=== PATIENT | female | born 1950 | race Caucasian/White ===

== ENCOUNTER 2018-03-05 09:03 | Day surgery (SDC) | payer OTHER ==
[~2018-03-05] VITALS: Ht 160 cm; Wt 89.5 kg
[~2018-03-05 09:03] MED LIST: ACID REDUCER20 MG PO; ALLO100 PO; BACL10 PO; BUME2 PO; CIPR500 PO; CODACE30 PO; Cetirizine HCl10 MG PO; Clonazepam1 MG PO; Cymbalta60 MG; DOCU100 PO; DULO60 PO; DULOXETINE HCL60 MG PO; EAC MC; Enulose 2020 G/30 ML PO; GABA800 PO; GLIP10 PO; Glucophage1000 MG PO; HYDACE10B PO; HYDMOR2 PO; HYDRA25 PO; INSULANPEN; INSULANPEN SC; LIRA0.6P; LIRA0.6P SC; Lantus100 UNIT/1 SC; METF500 PO; Metformin HCl1000 MG PO; NYST100P TOP; Naproxen500 MG PO; OXYB5 PO; PIOG30 PO; POTA10T PO; PREG150 PO; Percocet 5-3251 EACH PO; QUET25 PO; QUETIAPINE FUMA50 MG PO; SIMV5 PO; Simvastatin20 MG PO; WARF3 PO; WARF4 PO
== END 2018-03-05 11:28 | disposition home or self-care (01) ==
LOC: ORSCSDS 09:03
PROVIDERS: Internal Medicine Gastroenterology
PROC: 0DBK8ZX Excision of Ascending Colon, Via Natural or Artificial Opening Endoscopic, Diagnostic (ICD-10-PCS; principal; 2018-03-05 10:45)
PROC: 0D758ZZ Dilation of Esophagus, Via Natural or Artificial Opening Endoscopic (ICD-10-PCS; principal; 2018-03-05 10:45)
DX: Z12.11 Encounter for screening for malignant neoplasm of colon (principal); K21.9 Gastro-esophageal reflux disease without esophagitis; K22.8 Other specified diseases of esophagus; K57.30 Diverticulosis of large intestine without perforation or abscess without bleeding; K64.4 Residual hemorrhoidal skin tags; K64.8 Other hemorrhoids; R13.10 Dysphagia, unspecified; G47.33 Obstructive sleep apnea (adult) (pediatric); J44.9 Chronic obstructive pulmonary disease, unspecified; E66.9 Obesity, unspecified; Z95.0 Presence of cardiac pacemaker; E11.22 Type 2 diabetes mellitus with diabetic chronic kidney disease; I12.9 Hypertensive chronic kidney disease with stage 1 through stage 4 chronic kidney disease, or unspecified chronic kidney disease; N18.9 Chronic kidney disease, unspecified; Z79.84 Long term (current) use of oral hypoglycemic drugs; Z68.34 Body mass index [BMI] 34.0-34.9, adult; Z79.899 Other long term (current) drug therapy
CPT/HCPCS: 82947; 88305; 93005; 93010; J7120

== ENCOUNTER → 2019-08-26 | Outpatient (CLI) | payer OTHER | END | disposition home or self-care (01) | LOC: LAB SHORT 12:20 → LAB EV 12:20 | DX: K13.0 Diseases of lips (principal) | CPT/HCPCS: 87070; 87205 ==

== ENCOUNTER → 2019-11-01 | Outpatient (CLI) | payer OTHER ==
[2019-11-01 12:06] LABS: BASOPHILS ABSOLUTE AUTO 0.03 K/mm3 (0.00-0.23); BASOPHILS PERCENT AUTO 0 % (0-2); EOSINOPHILS ABSOLUTE AUTO 0.19 K/mm3 (0.00-0.68); EOSINOPHILS PERCENT AUTO 2 % (0-6); Hematocrit 40.1 % (33.0-51.0); Hemoglobin 12.9 g/dL (11.5-16.0); IMMATURE GRAN ABSOLUTE AUTO 0.06 K/mm3 (0.00-0.10); IMMATURE GRAN PERCENT AUTO 1 % (0-1); LYMPHOCYTES ABSOLUTE AUTO 1.53 K/mm3 (0.84-5.20); LYMPHOCYTES PERCENT AUTO 17 % (21-46); MONOCYTES ABSOLUTE AUTO 0.82 K/mm3 (0.16-1.47); MONOCYTES PERCENT AUTO 9 % (4-13); Mean Corpuscular HGB Conc 32.2 g/dL (31.5-36.5); Mean Corpuscular Volume 87 fL (80-100); Mean Platelet Volume 11.7 fL (9.1-12.4); NEUTROPHILS PERCENT AUTO 71 % (41-73); Platelet Count 251 K/mm3 (150-400); RDW Coefficient Variation 13.4 % (11.7-14.2); RDW Standard Deviation 42.5 fL (35.1-46.3); Red Blood Cell Count 4.61 M/mm3 (3.80-5.20); White Blood Cell Count 9.13 K/mm3 (4.00-11.30)
[2019-11-01 12:15] LABS: Albumin, Blood 3.3 g/dL (3.4-5.0); Albumin/Globulin Ratio 0.7 (0.8-1.8); Bilirubin, Total 0.3 mg/dL (0.1-1.0); Bun/Creatinine Ratio 26.3 (12.0-20.0); Calcium, Blood 9.2 mg/dL (8.5-10.1); Creatinine, Blood 1.18 mg/dL (0.40-1.00); Globulin, Blood 4.9 g/dL (2.2-4.0); Potassium, Blood 4.3 mmol/L (3.5-5.5); Total Protein, Blood 8.2 g/dL (6.4-8.2)
== END ==
LOC: LAB EV 11:57 → LAB SHORT 11:57
PROVIDERS: Emergency Medicine
DX: R73.9 Hyperglycemia, unspecified (principal)
CPT/HCPCS: 80053; 85025

== ENCOUNTER → 2021-04-01 | Outpatient (CLI) | payer OTHER | LOC: LAB SHORT 18:57 | DX: Z13.29 Encounter for screening for other suspected endocrine disorder (principal); E11.22 Type 2 diabetes mellitus with diabetic chronic kidney disease; E78.5 Hyperlipidemia, unspecified; N18.2 Chronic kidney disease, stage 2 (mild); E55.9 Vitamin D deficiency, unspecified; Z88.8 Allergy status to other drugs, medicaments and biological substances; Z88.0 Allergy status to penicillin; Z88.5 Allergy status to narcotic agent | CPT/HCPCS: 82043 ==

== ENCOUNTER 2021-06-25 19:02 | Inpatient (IN) | payer OTHER ==
[~2021-06-25] VITALS: Ht 162.6 cm; Wt 78.6 kg
[~2021-06-25 19:02] MED LIST changes: -Glucophage1000 MG PO; -OXYB5 PO
[2021-06-25 19:30] LABS: BASOPHILS ABSOLUTE AUTO 0.04 K/mm3 (0.00-0.23); BASOPHILS PERCENT AUTO 0 % (0-2); EOSINOPHILS ABSOLUTE AUTO 0.11 K/mm3 (0.00-0.68); EOSINOPHILS PERCENT AUTO 1 % (0-6); IMMATURE GRAN ABSOLUTE AUTO 0.06 K/mm3 (0.00-0.10); IMMATURE GRAN PERCENT AUTO 1 % (0-1); LYMPHOCYTES ABSOLUTE AUTO 1.46 K/mm3 (0.84-5.20); LYMPHOCYTES PERCENT AUTO 12 % (21-46); MONOCYTES ABSOLUTE AUTO 1.28 K/mm3 (0.16-1.47); MONOCYTES PERCENT AUTO 11 % (4-13); Mean Corpuscular HGB 28.7 pg (26.0-34.0); Mean Corpuscular Volume 90 fL (80-100); Mean Platelet Volume 11.5 fL (9.1-12.4); NEUTROPHILS ABSOLUTE AUTO 8.97 K/mm3 (1.96-9.15); NEUTROPHILS PERCENT AUTO 75 % (41-73); Platelet Count 237 K/mm3 (150-400); RDW Coefficient Variation 12.6 % (11.7-14.2); RDW Standard Deviation 41.3 fL (35.1-46.3); Red Blood Cell Count 5.57 M/mm3 (3.80-5.20); White Blood Cell Count 11.92 K/mm3 (4.00-11.30)
[2021-06-25 19:48] LABS: Alanine Aminotransfer (ALT/SGP 26 U/L (12-78); Albumin, Blood 3.5 g/dL (3.4-5.0); Albumin/Globulin Ratio 0.7 (0.8-1.8); Alk Phos 160 U/L (50-136); Anion Gap 8 mmol/L (6-16); Aspartate Aminotrans (AST/SGOT 37 U/L (12-37); Bilirubin, Total 0.8 mg/dL (0.1-1.0); Blood Urea Nitrogen 18 mg/dL (8-24); Bun/Creatinine Ratio 20.9 (12.0-20.0); CO2, Blood 28 mmol/L (21-32); Calcium, Blood 9.6 mg/dL (8.5-10.1); Chloride, Blood 101 mmol/L (98-108); Creatinine, Blood 0.86 mg/dL (0.40-1.00); Globulin, Blood 4.7 g/dL (2.2-4.0); Glomerular Filtration Rate >60 (60-); Glucose, Blood 332 mg/dL (70-99); Potassium, Blood 4.2 mmol/L (3.5-5.5); Sodium, Blood 137 mmol/L (136-145); Total Protein, Blood 8.2 g/dL (6.4-8.2); Troponin I 0.031 ng/mL (0.000-0.040)
[2021-06-25 19:58] LABS: International Normalized Ratio 1.01; Prothrombin Time Results 10.6 Sec (9.7-11.5)
[2021-06-25 22:05] LABS: Source, Urine Clean Catch
[2021-06-25 22:07] LABS: Bilirubin, Urine Neg (Neg); Blood, Urine 2+ (Neg); Glucose Qualitative, Urine 4+ (Neg); Ketones, Urine 3+ (Neg); Leukocyte Esterase, Urine 1+ (Neg); Nitrite, Urine Pos (Neg); Protein, Urine 3+ (Neg); Urobilinogen, Urine NORM (Normal)
[2021-06-25 22:15] LABS: Appearance, Urine Hazy (Clear); Color, Urine Yellow (P-Yellow)
[2021-06-25 22:16] LABS: Squamous Epithelial Cells Rare /hpf (Few); White Blood Cells, Urine 50-100 /hpf (0-5); Yeast/Fungi Urine Mod /hpf
[2021-06-25 22:17] LABS: Bacteria Many /hpf; Uric Acid Crystals Few /hpf
[2021-06-25 22:19] LABS: U Amphetamine Screen DETECTED; U Barbituate Screen Not Detected; U Benzodiazapine Screen Not Detected; U Buprenorphine Screen Not Detected; U Cannabinoids Screen Not Detected; U Cocaine Screen Not Detected; U Methadone Screen Not Detected; U Methamphetamine Screen DETECTED; U Opiates Screen Not Detected; U Oxycodone Screen Not Detected; U Phencyclidine Screen Not Detected; U Propoxyphene Screen Not Detected
[2021-06-26 00:08] LABS: Alanine Aminotransfer (ALT/SGP 22 U/L (12-78); Albumin, Blood 3.1 g/dL (3.4-5.0); Albumin/Globulin Ratio 0.7 (0.8-1.8); Alk Phos 139 U/L (50-136); Anion Gap 10 mmol/L (6-16); Aspartate Aminotrans (AST/SGOT 32 U/L (12-37); Bilirubin, Total 0.6 mg/dL (0.1-1.0); Blood Urea Nitrogen 18 mg/dL (8-24); Bun/Creatinine Ratio 21.8 (12.0-20.0); CO2, Blood 28 mmol/L (21-32); Calcium, Blood 9.4 mg/dL (8.5-10.1); Chloride, Blood 101 mmol/L (98-108); Creatinine, Blood 0.83 mg/dL (0.40-1.00); Globulin, Blood 4.3 g/dL (2.2-4.0); Glomerular Filtration Rate >60 (60-); Glucose, Blood 302 mg/dL (70-99); Phosphorus, Blood 2.9 mg/dL (2.5-4.9); Potassium, Blood 4.2 mmol/L (3.5-5.5); Sodium, Blood 139 mmol/L (136-145); Total Protein, Blood 7.4 g/dL (6.4-8.2)
--- NOTE | 2021-06-26 07:13 | NUR ---
TOOK OVER CARE OF PT AT 0700 06/26/21. PT RESTING COMFORTABLY IN ROOM ON ROOM AIR. NS RUNNING AT 125ML/HR. PT VITALS STABLE AT THIS TIME. NO NEW SIGNS OF WORSENING STROKE AT THIS TIME.
--- NOTE | 2021-06-26 07:15 | NUR ---
Assumed care of pt with Dorcas NUR at 0700. Bedside report received from Michaela NUR.
--- NOTE | 2021-06-26 08:47 | NUR ---
CURRENT DEFECITS PT HAS RIGHT SIDED WEAKNESS WITH GROSS MOTOR MOVEMENT. PT UNABLE TO GIVE THUMBS UP OR WIGGLE TOES AT THIS TIME. PT IS ABLE TO WEAKLY LIFT RIGHT SIDED EXTREMETIES FOR ABOUT FIVE SECONDS BEFORE DRIFTING. PT IS ABLE TO TRACK RN'S FINGER WITH EYES. NODS YES/NO APPROPRIATELY BUT SPEECH IS NONSENCICAL AT THIS TIME. PT APPEARS TO BE ALERT AND ORIENTED EVEN WITH ASSESSMENT LIMITATIONS DUE TO LACK OF VERBAL RESPONSES.
[2021-06-26 12:01] LABS: CHOL/HDL RATIO 4.3; Cholesterol 183 mg/dL (50-200); HDL Cholesterol 43 mg/dL (>39); LDL/HDL RATIO 2.7; Low Density Lipoprotein Chol 116 mg/dL (0-110); Triglycerides 120 mg/dL (30-160); Very Low Density Lipoprot Chol 24 mg/dL (6-32)
--- NOTE | 2021-06-26 17:57 | NUR ---
PER THERAPY ASSIST PT WITH EATING DUE TO IMPULSIVITY
--- NOTE | 2021-06-26 18:31 | NUR ---
PT AWAKE IN ROOM. NEURO STATUS IMPROVED SLIGHTLY. PT IS NOW ABLE TO SAY 'OKAY' AND 'YES' WITH SOME DIFFICULTY. NO OTHER WORDS SUCCESSFULLY SPOKEN YET. STILL ONLY GROSS MOVEMENT OF THE RIGHT SIDE. INTERMITTENT NEED FOR 2L NC OXYGEN. PT BP HAS BEEN RANGING AROUND 150-170'S, DR KASPER MADE AWARE AND PRN MED IN AUG FOR SYSTOLICS GREATER THAN 195. TOLERATED PUREED DIET WITHOUT SIGNS OF ASPIRATION. STOOD WITH PHYSICAL THERAPY TODAY.
--- NOTE | 2021-06-27 06:24 | NUR ---
NO SIGNIFICANT CHANGES OVERNIGHT. PT SLEEPS WHEN UNDISTURBED. SHE OPENS EYES TO VOICE AND FOLLOWS COMMANDS, NODS YES AND NO. BP ELEVATED BUT DID NOT MEET PARAMETERS FOR PRN'S. WILL CONTINUE TO MONITOR AND REPORT TO ONCOMING SHIFT.
[2021-06-27 07:41] LABS: Hematocrit 43.8 % (33.0-51.0); Hemoglobin 14.2 g/dL (11.5-16.0); Mean Corpuscular HGB 29.2 pg (26.0-34.0); Mean Corpuscular HGB Conc 32.4 g/dL (31.5-36.5); Mean Corpuscular Volume 90 fL (80-100); Mean Platelet Volume 11.2 fL (9.1-12.4); Platelet Count 205 K/mm3 (150-400); RDW Coefficient Variation 12.6 % (11.7-14.2); RDW Standard Deviation 41.6 fL (35.1-46.3); Red Blood Cell Count 4.87 M/mm3 (3.80-5.20); White Blood Cell Count 9.17 K/mm3 (4.00-11.30)
--- NOTE | 2021-06-27 07:52 | NUR ---
ASSUMED CARE: PT RESTING IN BED, PACED AT 69 ON TELE. ON RA. NO ACUTE NEEDS OR CONCERNS AT THIS TIME.
[2021-06-27 07:58] LABS: Albumin, Blood 2.9 g/dL (3.4-5.0); Anion Gap 10 mmol/L (6-16); Blood Urea Nitrogen 16 mg/dL (8-24); CO2, Blood 26 mmol/L (21-32); Calcium, Blood 8.8 mg/dL (8.5-10.1); Chloride, Blood 105 mmol/L (98-108); Creatinine, Blood 0.89 mg/dL (0.40-1.00); Glomerular Filtration Rate >60 (60-); Glucose, Blood 261 mg/dL (70-99); Phosphorus, Blood 2.7 mg/dL (2.5-4.9); Potassium, Blood 4.2 mmol/L (3.5-5.5); Sodium, Blood 141 mmol/L (136-145)
--- NOTE | 2021-06-27 15:19 | NUR ---
DISCUSSED PT'S BLOOD SUGARS WITH DR HOLDER. NEW ORDERS FOR INSULIN COVERAGE. CALLED PT'S S.O. TO HAVE HIM BRING HER HOME ROSANNA IN. STATED HE SHOULD BE ABLE TO GET IT HERE BY TOMORROW. NO FURTHER NEEDS AT THIS TIME.
--- NOTE | 2021-06-27 19:11 | NUR ---
SHIFT SUMMARY: PT'S NEURO STATUS REMAINS UNCHANGED THIS SHIFT. RIGHT SIDED WEAKNESS. ASSIST WITH MEALS, PT IS ABLE TO COMMUNICATE WITH NODDING AND SHAKING OF HEAD, OCCASIONAL WORDS OR SOUNDS TO INDICATE WHAT SHE NEEDS. ASSISTS WELL WITH TURNS IN BED. NO ACUTE NEEDS AT THIS TIME.
--- NOTE | 2021-06-28 06:06 | NUR ---
NO SIGNIFICANT CHANGES IN PT OVERNIGHT. SHE SLEEPS FOR LONGER STRETCHES WITH BRIEF INTERRUPTIONS FOR CARE. SPO2 BRIEFLY DROPS TO THE 80'S AND RECOVERS WITHIN SECONDS INTERMITTENTLY WITH SLEEP. PT DID VERBALIZE A MUMBLED "NO" ONE TIME. SHE CONTINUES TO NOD YES AND NO ANSWERS TO QUESTIONS. WILL CONTINUE TO MONITOR AND REPORT TO ONCOMING SHIFT.
--- NOTE | 2021-06-28 07:36 | NUR ---
ASSUMED CARE: PT RESTING QUIETLY IN BED AT THIS TIME. PACED AT 69 ON TELE. NO ACUTE NEEDS OR CONCERNS.
--- NOTE | 2021-06-28 12:16 | NUR ---
DR HOLDER CAME TO SEE PT AND IS MADE AWARE THAT PT'S VICTOZA IS UNAVAILABLE.
[2021-06-28] MEDS ORDERED: OXYB5 PO (14:36)
[2021-06-28] MEDS ORDERED: QUET100 PO (14:38)
[2021-06-28] MEDS ORDERED: METF500C PO (14:39)
--- NOTE | 2021-06-28 18:17 | NUR ---
PT TRANSFERED FROM ICU PT ARRIVED @ APPROX 1810 FROM ICU. PT APPEARS TO BE IN PLEASENT MOOD, BUT IS VERBALLY UNRESPONSIVE. PT ORIENTATED TO NEW ROOM AND PT COMFORT ASSESSED. PT ABLE TO SHAKE HEAD NO WHEN ASKED ABOUT PAIN AND SHOOK HEAD YES WHEN ASKED ABOUT COMFORT. PT SHOOK HEAD YES FOR UNDERSTANDING. BED ALARM ACTIVE. CALL LIGHT W/IN REACH. 2L NC.
--- NOTE | 2021-06-28 18:19 | NUR ---
REPORT CALLED TO KALEE NUR. PT TRANSFERRED VIA BED ON 2L NC. ACCOUNTING MANAGER ASSISTANT CONTROLLER FED PT DINNER PRIOR TRANSFER, TRANSFERRED BY HOSPITAL STAFF. NO ACUTE NEEDS OR CONCERNS.
--- NOTE | 2021-06-29 06:33 | NUR ---
SHIFT SUMMARY: PATIENT IS ALERT AND ORIENTED TO PERSON AND PLACE BY ANSWERING YES AND NO QUESTIONS, VSS. PATIENT WAS VERY LETHARGIC AT START OF SHIFT BUT WAS ABLE TO TAKE HER PILLS CRUSHED IN APPLE SAUCE AND SWALLOW HONEY THICKENED FLUIDS WITHOUT DIFFICULTY USING ASPIRATION PRECAUTIONS. INC. OF BOWEL AND BLADDER. AT START OF SHIFT RIGHT SIDE WAS FLACCID. THIS AM PATIENT HAS GROSS MOTOR FUNCTION OF FARRAH WITH A SLIGHT APPRAISER AUDITOR.
--- NOTE | 2021-06-29 16:01 | NUR ---
DAY SHIFT SUMMARY 70 YR OLD FEMALE PT WHO WAS FOUND DOWN IN HER HOME D/T STROKE. PT IS NON-VERBAL (BUT ABLE TO COMMUNICATE BY NODDING AND SHAKING HER HEAD) AND UNDERSTAND. PT IS ON SWALLOW PRECAUTIONS AND NEEDS TO BE FED AT MEALS. RT SIDED FACIAL DROOP IS PRESENT AND RT LEG IS FLACCID. GENERALIZED RT SIDED WEAKNESS PRESENT. PREVENTITIVE MEPILEX PLACED TO SACRAL AREA, ELBOWS, AND HEELS, WELL HILL BOOTS. CALL LIGHT IS WITHIN REACH OF PT AND PT ABLE TO PUSH LONG IT STAYS CLOSE BY. FREQUENT ROUNDING ON THIS PT D/T RT SIDED WEAKNESS AND LACK OF VERBAL COMMUNICATION.
--- NOTE | 2021-06-30 07:24 | NUR ---
SHIFT SUMMARY - NO ACUTE CHANGES THIS SHIFT. PT TOLERATED PO PUDDING AND APPLESAUCE WITHOUT COMPLICATIONS LAST NOC. PT SLEPT THROUGHOUT MOST OF THE NIGHT. PT IS ABLE TO REPOSITION SELF IN BED. PT CONTINUES WITH RIGHT SIDED WEAKNESS. BED IN LOW POSITION. CALL LIGHT WITHIN REACH.
--- NOTE | 2021-06-30 17:16 | NUR ---
DAY SHIFT SUMMARY 70 YEAR OLD FEMALE ADMIT POST STROKE. NONVERBAL BUT ABLE TO COMMUNICATE WITH NODDING AND SHANKING OF HER HEAD. PT IS ON 2L O2 AND WORKING WITH PHYSICAL THERAPY. WAITING PLACEMENT WITH SNF OR IRU. STATE VENETIAN BLIND MECHANIC, SOLANGE, CALLED TO STATE IF WE LET HER KNOW WHEN PT IS READY FOR DISCHARGE SHE CAN HELP WITH TRANSITION COORDINATION. HER NUMBER AND NAME HAS BEEN GIVEN TO PT AEROSPACE PROJECT MANAGER HERE. CALL LIGHT WITHIN REACH OF PT ON LT SIDE. RT SIDED WEAKNESS FROM STROKE. SACRAL, ELBOW, AND HEEL MEPILEX IN PLACE PRECAUTION WITH HEEL BOOTS.
--- NOTE | 2021-07-01 04:10 | NUR ---
DIAMOND GRINDER SUMMARY ADMITTED FOR ISCHEMIC STROKE WITH RIGHT SIDED FACIAL DROOP AND WEAKNESS. SHE IS FULL CODE. PLAN FOR DISCHARGE TO SNF. SHE IS NONVERBAL BUT COMMUNICATES WITH NODDING AND SHAKING OF HER HEAD. PT IS COOPERATIVE AND PLEASANT. 0/5 STRENGTH TO THE RIGHT ARM. 1/5 TO THE RIGHT LEG. SHE IS ABLE TO ASSIST WITH REPOSITIONING BUT IS LIMITED. THE PATIENT HAS BEEN RESTING THROUGHOUT THE SHIFT. SHE IS INCONTINENT WITH ATTENDS IN PLACE. NO OTHER CONCERNS THIS SHIFT.
--- NOTE | 2021-07-01 16:53 | NUR ---
SHIFT SUMMARY PT AWAKE AT START OF SHIFT, RESTING QUIETLY IN BED. PT IS NONVERBAL, BUT IS ABLE TO SHAKE HER HEAD FOR YES/NO QUESTIONS. PT ASSISTED UP TO CHAIR FOR BREAKFAST, WITH 2P MAX ASSIST AND GB WITH DIFFICULTY. R SIDE FLACCID, WITH R FACIAL DROOP. MEPILEX DRSG'S TO ELBOWS AND SACRAL AREA FOR PREVENTITIVE. PT ABLE TO TAKE MEDICATIONS CRUSHED IN APPLESAUCE W/O DIFFICULTY, BUT WAS NOT ABLE TO DRINK NECTAR THICK LIQUIDS WITH A SPOON W/O COUGHING CONSTANTLY. SPEECH TO FOR EVAL, NOTING PT COUGHING WITH THICKENED LIQUIDS WELL. BARAIUM SWALLOW DONE BEFORE LUNCH; PT DID NOT DO WELL. DR HOLDER NOTIFIED OF NEW RECOMMENDATIONS. PALLIATIVE CARE ALSO NOTIFIED OF PT STATUS. PALLIATIVE CARE RN NOTIFIED FAMILY TO DISCUSS PLAN OF CARE. PT NOT WANTING TO PARTICIPATE WITH P/T YESTERDAY OR TODAY, PRETENDING TO BE ASLEEP AND NOT WAKE UP. PT UNWILLING TO OPEN EYES FOR PALLIATIVE CARE TODAY WELL, PRETENDING TO BE SOUND ASLEEP, BUT THEN OPENED EYES IMMEDIATELY TO FAMILY. PT AND FAMILY INFORMED OF PT'S NEED TO PARTICIPATE IN CARE IN ORDER TO IMPROVE. FAMILY VERBALIZED UNDERSTANDING. PT REPOSITIONED THRU OUT THE DAY WITH PILLOWS TO KEEP PT ROTATED. BED ALARM ON FOR SAFETY. CALL LT IN REACH.
--- NOTE | 2021-07-01 17:15 | NUR ---
Family at bedside for a visit; pt has been refusing to work with therapy part of the time. Family encouraging her to put in the work so she can improve and move towards returnin home at some point. Pt indicates she will begin working more with therapy. Barium swallow study failed today. Dr. Benitez would like to try a soft diet, as she does need nutrition. She does shake her head,"YES" when asked if she wants to live.
--- NOTE | 2021-07-02 06:15 | NUR ---
SHIFT SUMMARY Patient non verbal, answer with nodding head yes or no. No disconfort noted. She slept through the night. No acute changes. We are continue with monitoring patient.
--- NOTE | 2021-07-02 15:14 | NUR ---
SHIFT SUMMARY PT ACTING A LITTLE MORE AWAKE TODAY. FAILED SWALLOW EVAL AGAIN THIS AM WITH PUDDING. PT LATER REFUSED SPEECH TX WELL AND O/T. PT UNWILLING TO PARTICIPATE IN CARE. R SIDE REMAINS FLACCID. PT REMAINS NONVERBAL. WILL NOD HEAD YES AND NO FOR SOME QUESTIONS. DR LOMELI IN TO SEE PT; NEW ORDERS PLACED. PT'S , TRUMAN, CALLED FOR UPDATE; GIVEN. PALLIATIVE CARE RN TO CALL DR LOMELI. DR LOMELI TO BE GIVEN HUSBANDS NUMBER TO CALL HIM. SX CONSULT PLACED FOR POSSIBLE PEG TUBE PLACEMENT, BUT PT IS UNWILLING TO PARTICIPATE TO TRY AND IMPROVE. PT IS BEING REPOSITIONED THRU OUT THE DAY AND ALLOWING ORAL CARE TO BE DONE. WILL CONTINUE TO MX. CALL LT IN REACH.
--- NOTE | 2021-07-02 16:48 | NUR ---
Pt's Abhinav and daughter Karen both state via telephone call that they do approve of feeding tube, along with pt herself shaking her head "Yes". At this time, it appears pt has been declined by IRU, and PT is recommending SNF now, then IRU after. Pt remains non-verbal. Will request a speech board for her.
--- NOTE | 2021-07-03 05:40 | NUR ---
SHIFT SUMMARY PT HAD AN UNEVENTFUL NIGHT. SLEPT OFF AND ON. R SIDED WEAKNESS AND R SIDED FACIAL DROOP. PT IS NONVERBAL. WILL NOD HEAD YES OR NO WHEN ANSWERING QUESTIONS. NO COMPLAINTS OF PAIN. INCONTINENT BUT PT WILL CALL WHEN SHE HAS GONE. ATTENDS IN PLACE. REDNESS TO RUBEN AREA, R SIDE. PT REMAINED NPO. Q 6 CBG'S. VITAL SIGNS STABLE. NO ACUTE CHANGES THIS SHIFT. WILL CONTINUE TO MONITOR.
[2021-07-03 10:38] LABS: Influenza A, PCR NEGATIVE (NEGATIVE); Influenza B, PCR NEGATIVE (NEGATIVE); Resp Syncytial Virus, PCR NEGATIVE (NEGATIVE); SARS-Cov-2 (COVID-19) PCR, MMC NEGATIVE (NEGATIVE)
--- NOTE | 2021-07-03 14:02 | NUR ---
ADMISSION TO UNIT STARTED ADMITS TO BEING NPO ANSWERS NO WITH SHAKE OF HEAD WHEN ASKED IT IMPLANTS IN BODY. 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
--- NOTE | 2021-07-03 14:58 | NUR ---
07/03/21 1458 Gilles Huizar See Anesthesia record TRAUL. Bite Block Placed. Patient to ENDO 1. History, Chart, Medications and Allergies reviewed before start of procedure. MONITOR INTACT WITH CONTINUOUS PULSE OXIMETRY AND INTERMITTENT BP. O2 VIA POM MASK INTACT THROUGHOUT SEDATION/PROCEDURE.
--- NOTE | 2021-07-03 17:48 | NUR ---
DAY SHIFT SUMMARY 70 YR OLD FEMALE FOUND DOWN IN HOME FROM STROKE. PEG TUBE PLACED TODAY. RECTAL TYLENOL ORDERED FOR PAIN, MEDICATED PER EMAR. WAITING PLACEMENT WITH SNF OR IRU. COMMUNICATED WITH PROGRESS THROUGHOUT DAY WITH PROCEEDURE. PT WORKED WITH ST TODAY WITH VERBAL SKILLS. PT REMAINS NPO AT THIS TIME. CALL LIGHT WITHIN REACH ON LT SIDE, RT SIDED WEAKNESS FROM STROKE.
--- NOTE | 2021-07-04 04:33 | NUR ---
SHIFT SUMMARY NO ACUTE CHANGES TO REPORT THIS SHIFT, PT HAS SLEPT T/O THE NIGHT AND HAS DENIED NEEDS WHEN ASKED. VITALS ARE STABLE. PT IS FLAT AND WITHDRAWN. ASSESSMENT REMAINS UNCHANGED. BED IN LOWEST POSITION, CALL LIGHT WITHIN REACH.
--- NOTE | 2021-07-04 11:46 | NUR ---
TUBE FEED STARTED ON THIS PATIENT PER ORDER. 25ML PER HOUR TO START ADVANCE 10ML PER 8 HOURS BY 10ML TO MAX OF 50ML PER HOUR H20 OF 25ML FLUSH EVERY HOUR. PATIENT TOLERATED FLUSH PRIOR TO STARTING TUBE FEED. NO PAIN OR SIGNS OR SYMPTOMS OF DISTRESS. WILL CLOSELY MONITOR THIS PATIENT FOR FIRST FEW HOURS. HOB IS AT 45 DEGREES. PATIENT CURRENTLY WATCHING TV. DMITRY ALVAREZ RN
--- NOTE | 2021-07-04 17:07 | NUR ---
SHIFT SUMMARY; STARTED TUBE FEEDS ON THIS PATIENT TODAY. PER ORDER INCREASED TO 35ML/HR AND 25ML FLUSH. PATIENT SHAKES HEAD FOR YES OR NO QUESTIONS. DOES NOT SPEAK. THIS RN SITS IN ROOM WITH PATIENT TODAY AND ASKS PAITENT ABOUT WHAT TELEVISION SHOW SHE WANTS TO WATCH. SHE IS ABLE TO COMMUNICATE WHAT SHE WANTED. PATIENT SPOUSE TRUMAN CALLS TODAY TO CHECK ON PATIENT AND WOULD LIKE SOMEONE TO CALL HIM ABOUT PLANS FOR HER DISCHARGE. SPOUSE HAS HAD A STROKE AND HE CANNOT TAKE CARE OF THIS PATIENT. HE WOULD PREFER THAT SHE GO TO [facility] RECORDS [facility]NAGER [facility] FOR NOW. WILL REMAIN AVAILABLE FOR THIS PAITENT FOR ANY WANTS OR NEEDS UNTIL HAND OFF AT SHIFT CHANGE. DMITRY ALVAREZ RN
[2021-07-05 05:20] LABS: Anion Gap 7 mmol/L (6-16); Blood Urea Nitrogen 32 mg/dL (8-24); Bun/Creatinine Ratio 43.2 (12.0-20.0); CO2, Blood 28 mmol/L (21-32); Calcium, Blood 9.5 mg/dL (8.5-10.1); Chloride, Blood 102 mmol/L (98-108); Creatinine, Blood 0.74 mg/dL (0.40-1.00); Glomerular Filtration Rate >60 (60-); Glucose, Blood 236 mg/dL (70-99); Phosphorus, Blood 3.4 mg/dL (2.5-4.9); Potassium, Blood 4.1 mmol/L (3.5-5.5); Sodium, Blood 137 mmol/L (136-145)
--- NOTE | 2021-07-05 05:28 | NUR ---
SHIFT SUMMARY NO ACUTE CHANGES TO REPORT THIS SHIFT. PT REMAINS NONVERBAL. PT IS TOLERATING HER TUBES FEEDS. RATE INCREASED FROM 35M TO 45 ML, AND SHE IS NOW NEAR HER GOAL RATE. PEG TUBE WNL. BLOOD SUGARS HAVE INCREASED SINCE STARTING FEEDS. LONG ACTING GIVEN AT HS. VITALS STABLE. BED IN LOWEST POSITION, CALL LIGHT WITHIN REACH.
--- NOTE | 2021-07-05 19:23 | NUR ---
SHIFT SUMMARY PATIENT RESTING IN BED. PATIENT IS NON-VERBAL BUT WILL NOD TO ANSWER YES OR NO QUESTIONS. NO SIGNIFICANT EVENTS T/O SHIFT. PATIENT WORKED WITH PT TODAY. TOLERATED WELL. PATIENT RECEIVING TUBE FEEDINGS AND RATE INCREASED TO GOAL OF 50ML. RECEIVING MEDICATIONS THROUGH PEG TUBE. BED IN LOW POSITION WITH CALL LIGHT IN REACH.
--- NOTE | 2021-07-06 05:08 | NUR ---
SUMMARY: PT RESTS IN BED W/O S/S PAIN OR DISTRESS. SHE CONT'S TO BE NON-VERBAL BUT NODS HEAD YES/NO TO SPECIFY NEEDS. R.SIDE WEAKNESS PERSISTS BUT PT ASSISTS W/TURNING ABLE AND ATTEMPTS TO FOLLWO COMMANDS. CONT PEG FEEDS INFUSING AT GOAL OF 5O ML/HR W/RESIDUALS <40 MLS T/O NOCTE. MEDS RECIEVED CRUSHED VIA TUBE PT REMAINS NPO. CBG'S STABLE, NO INSULIN RX'D OR INDICATED. TURN SCHEDULE MAINTAINED AND MEPILEXES PRESENT TO BONY PROMINENCES FOR SBD PREVENTION, NO BREAKDOWN OBSERVED. ATTENDS CHANGED PRN FOR INCONTINENCE OF URINE/STOOL AND MICONAZOLE POWDER APPLIED TO RASHY GROIN/RUBEN AREA. VSS AND VSS/AFEBRILE, NO ACUTE CHANGES. WCTM AND REPORT TO DAY RN.
--- NOTE | 2021-07-06 07:53 | NUR ---
LIUDMILA noriega handoff of patient care from [facility] Patient was in bed asleep. She did not appear in any distress. She had no requests at this time
--- NOTE | 2021-07-06 16:34 | NUR ---
Patient was alert and orient. She was able to nod her head yes when asked questions. She was also able to say yes but garbled. RN asked her to respond with words instead of a nod. RN asked her the numbers on the sheet and she said 1,2,3,4,5 as clear as she could. Patient had no c/o pain, she remained NPO, and continued on tube feedings at 50ml/hr. Her residual was 10ml. Patient HOB remained at 30 degress or above due to the feedings. Patient slept most of the shift. SHe had no requests at this time
--- NOTE | 2021-07-07 04:59 | NUR ---
PT IS A/OX1-2. SHE IS NOT ENTIRELY NON-VERBAL. IF PROMPTED SHE WILL SAY YES/NO. SHE IS CURRENLTY GETTING 50 ML/HR OF GLUCERNA VIA PEG TUBE. SHE REMAINED BEDBOUND THIS NOC SHIFT. NO TELE AND RA. NO ACUTE CHANGES TO REPORT. WE WILL CONTINUE TO MONITOR.
--- NOTE | 2021-07-07 07:59 | NUR ---
RN recvd handoff of patient care from LIUDMILA Mccullough Patient was in bed, awake, and not in distress
--- NOTE | 2021-07-07 15:57 | NUR ---
Patient was alert and orient. Physical/Occupational/Speech therapy all worked with patient today. RN brought a recliner to her room in case she would have gotten out of bed today. She did sit at the edge of the bed but felt too tired to get into the recliner. Patient tube feeding was on at 50ml/hr and turned off briefly because patient indicated she was full. Residual was at 50ml. Patient continued on blood glucose checks and take scheduled meds via pegtube. Cont to monitor patient
--- NOTE | 2021-07-08 07:57 | NUR ---
LIUDMILA noriega handoff of patient care from LIUDMILA Mccullough Patient was asleep in bed and did not appear to be in distress
--- NOTE | 2021-07-08 14:00 | NUR ---
Arrived to Pt's room with CORPORATE ASSOCIATE ATTORNEY in progress. Pt became unresponsive. Plan for CT. Dr Bishop will call Pt's spouse. Offered gentle voice and therapeutic touch with Pt. Offered reassurance and supportive visit for Pt. Palliative Care will remain available.
[2021-07-08 14:01] LABS: Bicarbonate Venous 34.3 mmol/L (24.0-30.0); PCO2 Venous 41.3 mmHg (38-42); PO2 Venous 49.8 mmHg (38-42); pH Blood Venous 7.53 (7.34-7.37)
[2021-07-08 14:02] LABS: Base Excess Venous 11.9 mmol/L
--- NOTE | 2021-07-08 15:50 | NUR ---
Patient was alert and orient, affect looked calm and mood was congruent. Patient did have an unarousable episode and MELT HOUSE SUPERVISOR had to be called. She is in bed back from CT. Her HOB is raised, her tubefeeding in on at 50ml/hr, and the bed alarm is on. RN talked to prior to the MELT HOUSE SUPERVISOR to give updates on patient. Patient had no requests at this time.
[2021-07-08 16:50] LABS: Anion Gap 3 mmol/L (6-16); Blood Urea Nitrogen 24 mg/dL (8-24); Bun/Creatinine Ratio 26.8 (12.0-20.0); CO2, Blood 36 mmol/L (21-32); Calcium, Blood 9.7 mg/dL (8.5-10.1); Chloride, Blood 99 mmol/L (98-108); Glomerular Filtration Rate >60 (60-); Glucose, Blood 101 mg/dL (70-99); Sodium, Blood 138 mmol/L (136-145)
--- NOTE | 2021-07-09 06:26 | NUR ---
SHIFT SUMMARY: PT IS RESPONSIVE TO VOICE OR MOVEMENT IN THE ROOM. SHE WAS ABLE TO COMMUNICATE WITH HEAD NODS AND SIMPLE GESTURES. HER GLUCERNA CONTINUES TO RUN AT THE 50ML/HR GOAL. SHE HAS NOT HAD ANY C/O OF BEING TOO FULL. MEPILEX DRESSINGS REMAIN IN PLACE. HER LAST Q6 BLOOD SUGAR WAS 163. NO OTHER CHANGES TO REPORT. BED IS IN THE LOWEST POSITION AND ALARM IS SET. WE'LL CONTINUE TO MONITOR.
--- NOTE | 2021-07-09 07:39 | NUR ---
RN recvd handoff of patient care from LIUDMILA Mccullough. Patient was in bed asleep. She did not appear to be in any distress
[2021-07-09 10:13] LABS: SARS-Cov-2 (COVID-19) Antigen Negative (NEGATIVE)
[2021-07-09] MEDS ORDERED: TYLENOL SUPPOSITORY PR (11:06)
[2021-07-09] MEDS ORDERED: ASPI81CH PT (11:07)
[2021-07-09] MEDS ORDERED: ATOR40TA PT (11:07)
[2021-07-09] MEDS ORDERED: BISA10S PR (11:07)
[2021-07-09] MEDS ORDERED: DULO60 PT (11:08)
[2021-07-09] MEDS ORDERED: HUMALOG JU100 UNIT/2 SC (11:09)
[2021-07-09] MEDS ORDERED: DULCOLAX400 MG/5 M PT (11:10)
[2021-07-09] MEDS ORDERED: PREG100 PT (11:12)
[2021-07-09] MEDS ORDERED: ANTIFUNGAL POWD71 GM TOP (11:12)
--- NOTE | 2021-07-09 14:55 | NUR ---
Patient was discharged from the unit at 1445. She was accompanied by EMT staff. She was alert and orient and appropriate for discharge. She took her meds and insulin earlier in the shift. Her blood glucose was 151 at noon. She was transferred to [facility]. RN spoke to Zofia and gave report
== END 2021-07-09 14:35 | DRG 64 ==
LOC: ER 19:02 → MEDS 23:00 → ICUW 23:00 → MEDS 06-28 18:04
PROVIDERS: Emergency Medicine; Family Medicine; Internal Medicine; Surgery; ADMIT Internal Medicine
PROC: 0DH64UZ Insertion of Feeding Device into Stomach, Percutaneous Endoscopic Approach (ICD-10-PCS; principal; 2021-07-03 14:00)
DX: I63.512 Cerebral infarction due to unspecified occlusion or stenosis of left middle cerebral artery (principal); G93.6 Cerebral edema; G81.91 Hemiplegia, unspecified affecting right dominant side; G93.49 Other encephalopathy; I44.2 Atrioventricular block, complete; N39.0 Urinary tract infection, site not specified; R29.711 NIHSS score 11; E11.40 Type 2 diabetes mellitus with diabetic neuropathy, unspecified; E78.5 Hyperlipidemia, unspecified; F32.A Depression, unspecified; Z20.822 Contact with and (suspected) exposure to COVID-19; I10 Essential (primary) hypertension; R13.12 Dysphagia, oropharyngeal phase; M19.90 Unspecified osteoarthritis, unspecified site; F15.10 Other stimulant abuse, uncomplicated; M79.7 Fibromyalgia; R47.01 Aphasia; G83.9 Paralytic syndrome, unspecified; R47.1 Dysarthria and anarthria; E11.65 Type 2 diabetes mellitus with hyperglycemia; R29.810 Facial weakness; R91.1 Solitary pulmonary nodule; Z96.652 Presence of left artificial knee joint; B96.20 Unspecified Escherichia coli [E. coli] as the cause of diseases classified elsewhere; Z53.29 Procedure and treatment not carried out because of patient's decision for other reasons; I25.2 Old myocardial infarction; Z95.0 Presence of cardiac pacemaker; Z90.89 Acquired absence of other organs; Z90.710 Acquired absence of both cervix and uterus; Z98.890 Other specified postprocedural states; Z88.0 Allergy status to penicillin; Z88.6 Allergy status to analgesic agent; Z88.8 Allergy status to other drugs, medicaments and biological substances; Z79.4 Long term (current) use of insulin; Z79.82 Long term (current) use of aspirin; Z79.899 Other long term (current) drug therapy
CPT/HCPCS: 0241U; 36415; 70450; 70496; 70498; 74230; 80048; 80053; 80061; 80069; 81001; 82803; 82947; 83036; 83735; 84100; 84484; 85025; 85027; 85610; 87077; 87086; 87186; 87426; 92507; 92523; 92526; 92610; 92611; 93005; 93010; 93306; 96374; 97110; 97112; 97162; 97166; 97530; 97535; 99285-25; A9270; C9803; J0690; J0696; J1650; J1815; J2704; J7030; J7120; P9612; Q9967

== ENCOUNTER 2021-12-25 09:01 | Inpatient (IN) | payer OTHER ==
[~2021-12-25] VITALS: Ht 165.1 cm; Wt 79.4 kg
[~2021-12-25 09:01] MED LIST changes: +ANTIFUNGAL POWD85 GM; +ASPI81CH PT; +ATOR40TA PT; +BISA10S PR; +DULCOLAX400 MG/5 M PT; +DULO60 PT; +HUMALOG JU100 UNIT/2 SC; +METF500C PO; +OXYB5 PO; +PREG100 PT; +QUET100 PO; +TYLENOL SUPPOSITORY PR
[2021-12-25] MEDS ORDERED: SERT25 PT (09:16)
[2021-12-25] MEDS ORDERED: BASAGLAR K100 UNIT/1 SC (09:16)
[2021-12-25 09:50] LABS: BASOPHILS ABSOLUTE AUTO 0.04 K/mm3 (0.00-0.23); BASOPHILS PERCENT AUTO 0 % (0-2); EOSINOPHILS ABSOLUTE AUTO 0.06 K/mm3 (0.00-0.68); EOSINOPHILS PERCENT AUTO 1 % (0-6); Hematocrit 42.6 % (33.0-51.0); Hemoglobin 13.7 g/dL (11.5-16.0); IMMATURE GRAN ABSOLUTE AUTO 0.03 K/mm3 (0.00-0.10); IMMATURE GRAN PERCENT AUTO 0 % (0-1); LYMPHOCYTES ABSOLUTE AUTO 1.25 K/mm3 (0.84-5.20); LYMPHOCYTES PERCENT AUTO 13 % (21-46); MONOCYTES ABSOLUTE AUTO 0.86 K/mm3 (0.16-1.47); MONOCYTES PERCENT AUTO 9 % (4-13); Mean Corpuscular HGB 27.1 pg (26.0-34.0); Mean Corpuscular HGB Conc 32.2 g/dL (31.5-36.5); Mean Corpuscular Volume 84 fL (80-100); Mean Platelet Volume 11.9 fL (9.1-12.4); NEUTROPHILS ABSOLUTE AUTO 7.09 K/mm3 (1.96-9.15); NEUTROPHILS PERCENT AUTO 76 % (41-73); Platelet Count 221 K/mm3 (150-400); RDW Coefficient Variation 14.7 % (11.7-14.2); RDW Standard Deviation 45.1 fL (35.1-46.3); Red Blood Cell Count 5.05 M/mm3 (3.80-5.20); White Blood Cell Count 9.33 K/mm3 (4.00-11.30)
[2021-12-25 10:09] LABS: Albumin, Blood 3.3 g/dL (3.4-5.0); Albumin/Globulin Ratio 0.8 (0.8-1.8); Bilirubin, Total 0.7 mg/dL (0.1-1.0); Bun/Creatinine Ratio 64.8 (12.0-20.0); Calcium, Blood 10.1 mg/dL (8.5-10.1); Creatinine, Blood 0.62 mg/dL (0.40-1.00); Globulin, Blood 4.2 g/dL (2.2-4.0); Potassium, Blood 3.8 mmol/L (3.5-5.5); Total Protein, Blood 7.5 g/dL (6.4-8.2)
[2021-12-25 10:10] LABS: Source, Urine Straight Cath
[2021-12-25 10:16] LABS: Appearance, Urine Clear (Clear); Bilirubin, Urine Neg (Neg); Blood, Urine 2+ (Neg); Color, Urine Yellow (P-Yellow); Glucose Qualitative, Urine Neg (Neg); Ketones, Urine Neg (Neg); Leukocyte Esterase, Urine Neg (Neg); Nitrite, Urine Neg (Neg); Protein, Urine 4+ (Neg); Urobilinogen, Urine 1+ (Normal)
[2021-12-25 10:24] LABS: White Blood Cells, Urine 0-2 /hpf (0-5)
[2021-12-25 10:25] LABS: Bacteria Rare /hpf; Squamous Epithelial Cells Rare /hpf (Few); Transitional Epithelial Cells Few /hpf (0-Rare)
[2021-12-25 10:26] LABS: Hyaline Casts 0-2 /lpf (0-2)
[2021-12-25 11:28] LABS: Influenza A, PCR NEGATIVE (NEGATIVE); Influenza B, PCR NEGATIVE (NEGATIVE); Resp Syncytial Virus, PCR NEGATIVE (NEGATIVE); SARS-Cov-2 (COVID-19) PCR, MMC NEGATIVE (NEGATIVE)
--- NOTE | 2021-12-25 15:57 | NUR ---
Pt arrived to 305 via gurney from ED, pt moved to bed by sliding, a/ox3, speech is difficult secondary to cva, follows commands well, states pain is ok at this time, lungs are clear t/o, resp even and unlabored, on r/a at this time, no cough noted, hrr, no edema noted, ppp+2, cap refill< 3sec, vs stable, afebrile, iv site is clear and patent, btx4, abd flat soft tender in lower quads, pullups in place, skin c/w/d, jetting machine operator weaker on r and dpfe weaker on r, lore, oriented to room layout and call system, call light in reach.
--- NOTE | 2021-12-25 18:12 | NUR ---
Pt reported pain 8/10 in her abd and legs, dangling on side of bed, wants to go to the bathroom, will take her after pain is better controlled, no further changes this shift, call light in reach.
[2021-12-25] MEDS ORDERED: Acetaminophen650 M1 PT (20:05)
[2021-12-26 05:00] LABS: BASOPHILS ABSOLUTE AUTO 0.04 K/mm3 (0.00-0.23); BASOPHILS PERCENT AUTO 0 % (0-2); EOSINOPHILS ABSOLUTE AUTO 0.08 K/mm3 (0.00-0.68); EOSINOPHILS PERCENT AUTO 1 % (0-6); Hematocrit 43.5 % (33.0-51.0); Hemoglobin 13.8 g/dL (11.5-16.0); IMMATURE GRAN ABSOLUTE AUTO 0.04 K/mm3 (0.00-0.10); IMMATURE GRAN PERCENT AUTO 0 % (0-1); LYMPHOCYTES ABSOLUTE AUTO 1.21 K/mm3 (0.84-5.20); LYMPHOCYTES PERCENT AUTO 12 % (21-46); MONOCYTES ABSOLUTE AUTO 0.92 K/mm3 (0.16-1.47); MONOCYTES PERCENT AUTO 9 % (4-13); Mean Corpuscular HGB 26.9 pg (26.0-34.0); Mean Corpuscular HGB Conc 31.7 g/dL (31.5-36.5); Mean Corpuscular Volume 85 fL (80-100); Mean Platelet Volume 11.6 fL (9.1-12.4); NEUTROPHILS ABSOLUTE AUTO 7.97 K/mm3 (1.96-9.15); NEUTROPHILS PERCENT AUTO 78 % (41-73); Platelet Count 207 K/mm3 (150-400); RDW Coefficient Variation 14.7 % (11.7-14.2); RDW Standard Deviation 45.4 fL (35.1-46.3); Red Blood Cell Count 5.13 M/mm3 (3.80-5.20); White Blood Cell Count 10.26 K/mm3 (4.00-11.30)
--- NOTE | 2021-12-26 05:09 | NUR ---
NURSE NOTE/SHIFT SUMMARY: PT A/OX1-2, 1 PERSON ASSIST TO AMBULATE WITH WALKER. PATIENT RESTLESS THROUGHOUT THE NIGHT WITH LITTLE SLEEP, FREQUENT PAIN MEDICATION ADMINISTRATION DUE TO ABDOMINAL PAIN. SPOKE WITH PTS CAREGIVER "ALAYNA" FROM [facility] ([phone]), INFORMED THAT PATIENT CAN ONLY RECEIVE CRUSHED MEDICATIONS VIA PEG TUBE. PEG TUBE FEEDINGS ARE GLUCERNA WITH CARB STEADY 356 CALORIE 8 OZ CONTAINER 4X DAILY WITH ADDITIONAL 8OZ WATER WITH FEEDINGS. FEEDINGS ADMINSTERED VIA GRAVITY. PATIENT CAN ONLY CONSUME ICE CHIPS ORALLY- REPORTED SILENT ASPIRATION. NO NAUSEA REPORTED OR EPISODES OF EMESIS THROUGHOUT THE NIGHT. MD GAVE ORDER TO HOLD NIGHT TIME MEDICATIONS DUE TO PATIENTS INCREASED ABDOMINAL PAIN. ADDITIONAL HYDRALAZINE WAS ADMINISTERED 2X FOR ELEVATED BP 180> SYSTOLIC. ADDITIONAL PRN BP MEDICATIONS ADDED TO EMAR. PT CALLS APPROPRIATELY FOR BATHROOM ASSISTANCE, BED ALARM REMAINS ACTIVATED, BED IN LOW POSITION, CALL GRANT AND BELONGINGS IN REACH.
[2021-12-26 05:42] LABS: Albumin/Globulin Ratio 0.8 (0.8-1.8); Bilirubin, Total 0.9 mg/dL (0.1-1.0); Bun/Creatinine Ratio 47.3 (12.0-20.0); Calcium, Blood 9.1 mg/dL (8.5-10.1); Creatinine, Blood 0.63 mg/dL (0.40-1.00); Globulin, Blood 3.8 g/dL (2.2-4.0); Potassium, Blood 3.6 mmol/L (3.5-5.5); Total Protein, Blood 6.8 g/dL (6.4-8.2)
--- NOTE | 2021-12-26 08:00 | NUR ---
Pt laying in bed asking for pain meds, a/ox3, cooperative with care, follows commands well, states she slept, very difficult to communicate because speech is pretty garbled, lungs are clear a bit dim in bases, resp even and unlabored, no cough noted, currently on 2 liters 02 via n/c, hrr, tele in place running sr per monitor, see strip, iv site is clear and patent, infusing ns at 100mls/hr, btx4 hypoactive, voids via bsc, skin c/w/d, moves left side, right ext are weak, lore, call light in reach.
--- NOTE | 2021-12-26 12:43 | NUR ---
Pt started on tube feeds, tolerating well, resting quietly in bed, states she's comfortable, no complaints. call light in reach.
--- NOTE | 2021-12-26 18:16 | NUR ---
pt was started on her tube feeds, tolerates well, have medicated her for pain three times, up to [facility] freq, no acute changes this shift, call light in reach.
--- NOTE | 2021-12-26 20:49 | NUR ---
NURSE NOTE: 8OZ GLUCERNA TUBE FEEDING COMPLETED VIA GRAVITY TONIGHT WITH ADDITIONAL 8OZ WATER IN CONJUNCTION WITH 2100 MEDICATIONS. UPON ASSESSMENT PATIENT COMPLAINS THAT PRIMARY PAIN IS ON LEFT HIP WHILE ABDOMINAL PAIN HAS SUBSIDED AT THIS TIME. FENTANYL IV HAS NOT PROVIDED PATIENT WITH FULL PAIN RELIEF. WILL CONTACT MD TO REQUEST ADDITIONAL PAIN MEDICATIONS OR ADJUSTMENT IN PAIN MEDICATION REGIMEN.
--- NOTE | 2021-12-27 05:21 | NUR ---
SHIFT SUMMARY: IMPROVED PAIN CONTROL THIS SHIFT COMPARED TO THE PREVIOUS NIGHT. TONIGHT PATIENT HAS PRIMARILY COMPLAINED OF LEFT HIP PAIN WITH ONLY SLIGHT ABDOMINAL DISCOMFORT. RATING OF LEFT HIP PAIN UP TO 8/10, PT UNSURE CAUSE OF HIP PAIN. MD NOTIFIED- BREAKTHROUGH DILAUDID PAIN MEDICATION ORDERED PRN TO BE ADMINISTERED VIA PEG TUBE. SO FAR BREAKTHROUGH MAIN MEDICATIONS HAVE NOT BEEN REQUIRED. TONIGHT PT HAS BEEN ENCOURAGED TO USE PUREWICK AND REST NOT FREQUENTLY GETTING UP OUT OF BED TO USE BATHROOM IN ORDER TO REST LEFT LEG/HIP REGION THAT HAS BEEN CAUSING SIGNIFICANT PAIN. HEATING PAD APPLIED TO HIP. PATIENT HAS BEEN ABLE TO GET SIGINIFCANT AMOUNTS OF REST TONIGHT IN COMPARISON TO THE PREVIOUS NIGHT. SO FAR PAIN MEDICATIONS HAVE BEEN ADMINSITERED 3X WHICH IS A SIGNIFICANT DECREASE. NO COMPLAINTS OF NAUSEA THROUGHOUT THIS SHIFT. 1 GLUCERNA TUBE FEED WITH 8OZ WATER ADMINISTERED WITH 2100 MEDICATIONS, PT DECLINED FOURTH FEEDING OF THE DAY. PT CONTINUES TO CALL APPROPRIATELY, VOIDING WELL WITH PUREWICK IN PLACE. BED ALARM REMAINS ACTIVATED, CALL GRANT AND BELONGINGS IN REACH, BED IN LOW POSITION.
--- NOTE | 2021-12-27 08:00 | NUR ---
pt laying in bed, awake watching tv, states her pain is at 0, comfortable, did her feeding, and medications via peg tube, lungs are clear t/o, on 2 liters o2 via n/c, resp even and unlabored, no cough noted, hrr, tele in place running sr per monitor, see strip, no trace edema noted, ppp+2, cap refill <3sec, vs stable afebrile, iv site is clear and patent, btx4, abd flat soft nontender, voids via bsc, skin c/w/d, maew, weaker on right side, speech is garbled expressive aphagia, lore, call light in reach.
[2021-12-27] MEDS ORDERED: AMLO5 PT (09:49)
[2021-12-27] MEDS ORDERED: Dilaudid 2 mg Ta2 MG PT (09:50)
--- NOTE | 2021-12-27 10:44 | NUR ---
pt has a bit of a bloody nose, mild, will add humidity to her o2, call light in reach.
--- NOTE | 2021-12-27 16:47 | NUR ---
just finished third feed today, will possibly be going home tonight, after caregiver see's her. asking for a shower, student outreach coordinator getting her ready. call light in reach.
--- NOTE | 2021-12-27 18:41 | NUR ---
pt had a shower, did well with it, will be discharged to home tonight, ride will be here at 1930. iv removed intact, sitting up in the chair, will medicate her prior to leaving. call light in reach.
--- NOTE | 2021-12-27 19:32 | NUR ---
DISCHARGE: PATIENT DISCHARGE AT 1932 VIA WHEELCHAIR WITH AMBULANCE TRANSPORT TO [facility]. DAY SHIFT RN ADMNISTERED DOSE OF DILAUDID PRIOR TO DISCHARGE, AND GAVE REPORT TO FACILITY. PTS IV REMOVED, BELONGINGS GIVEN TO TRANSPORT. ON 2L O2 NASAL CANNULA.
== END 2021-12-27 19:33 | disposition home or self-care (01) | DRG 440 ==
LOC: ER 09:01 → ERHOLD 09:02 → MEDS 15:35
PROVIDERS: Student in an Organized Health Care Education/Training Program; ADMIT Internal Medicine
DX: K85.90 Acute pancreatitis without necrosis or infection, unspecified (principal); N20.0 Calculus of kidney; E11.21 Type 2 diabetes mellitus with diabetic nephropathy; M79.7 Fibromyalgia; F32.A Depression, unspecified; I10 Essential (primary) hypertension; M19.90 Unspecified osteoarthritis, unspecified site; E78.00 Pure hypercholesterolemia, unspecified; Z20.822 Contact with and (suspected) exposure to COVID-19; E11.649 Type 2 diabetes mellitus with hypoglycemia without coma; R13.12 Dysphagia, oropharyngeal phase; E11.40 Type 2 diabetes mellitus with diabetic neuropathy, unspecified; R74.8 Abnormal levels of other serum enzymes; Z93.1 Gastrostomy status; I25.2 Old myocardial infarction; Z98.890 Other specified postprocedural states; Z90.710 Acquired absence of both cervix and uterus; Z88.0 Allergy status to penicillin; Z87.440 Personal history of urinary (tract) infections; Z79.02 Long term (current) use of antithrombotics/antiplatelets; Z88.5 Allergy status to narcotic agent; Z79.4 Long term (current) use of insulin; Z88.8 Allergy status to other drugs, medicaments and biological substances; Z79.84 Long term (current) use of oral hypoglycemic drugs; Z79.899 Other long term (current) drug therapy; Z79.82 Long term (current) use of aspirin; Z95.0 Presence of cardiac pacemaker; I69.320 Aphasia following cerebral infarction
CPT/HCPCS: 0241U; 36415; 71046; 74177; 80053; 81001; 82947; 83690; 85025; 93005; 93010; 94760; 96372; 96374-59; 96375; 96376; 99285-25; A9270; C9113; G0378; J0360; J1650; J1815; J3010; J7030; J7120; P9612; Q9967

== ENCOUNTER → 2022-02-02 | Outpatient (CLI) | payer OTHER ==
[~2022-02-02] MED LIST changes: +AMLO5 PT; +Acetaminophen650 M1 PT; +BASAGLAR K100 UNIT/1 SC; +Dilaudid 2 mg Ta2 MG PT; +SERT25 PT
[2022-02-02 13:44] LABS: Creatinine, Urine Random 44.3 mg/dL (27.00-270.00)
[2022-02-02 13:51] LABS: Microalb/Creat Ratio UR, Rand 6839.73 mg/g (0.000-30.000)
== END | disposition home or self-care (01) ==
LOC: LAB SHORT 09:10 → LAB 09:10
PROVIDERS: Physician Assistant
DX: I12.9 Hypertensive chronic kidney disease with stage 1 through stage 4 chronic kidney disease, or unspecified chronic kidney disease (principal); N18.9 Chronic kidney disease, unspecified
CPT/HCPCS: 82043; 82570

== ENCOUNTER 2022-03-14 18:15 | Inpatient (IN) | payer OTHER ==
[~2022-03-14] VITALS: Ht 165.1 cm; Wt 78.6 kg
[~2022-03-14 18:15] MED LIST changes: -METF500C PO; +METF500C PT
[2022-03-14 18:54] LABS: BASOPHILS ABSOLUTE AUTO 0.02 K/mm3 (0.00-0.23); BASOPHILS PERCENT AUTO 0 % (0-2); EOSINOPHILS PERCENT AUTO 0 % (0-6); Hematocrit 35.5 % (33.0-51.0); Hemoglobin 11.4 g/dL (11.5-16.0); IMMATURE GRAN ABSOLUTE AUTO 0.02 K/mm3 (0.00-0.10); IMMATURE GRAN PERCENT AUTO 0 % (0-1); LYMPHOCYTES ABSOLUTE AUTO 1.19 K/mm3 (0.84-5.20); LYMPHOCYTES PERCENT AUTO 16 % (21-46); MONOCYTES ABSOLUTE AUTO 1.48 K/mm3 (0.16-1.47); MONOCYTES PERCENT AUTO 20 % (4-13); Mean Corpuscular HGB 27.7 pg (26.0-34.0); Mean Corpuscular HGB Conc 32.1 g/dL (31.5-36.5); Mean Corpuscular Volume 86 fL (80-100); Mean Platelet Volume 11.7 fL (9.1-12.4); NEUTROPHILS ABSOLUTE AUTO 4.89 K/mm3 (1.96-9.15); NEUTROPHILS PERCENT AUTO 64 % (41-73); Platelet Count 183 K/mm3 (150-400); RDW Coefficient Variation 15.5 % (11.7-14.2); RDW Standard Deviation 48.8 fL (35.1-46.3); Red Blood Cell Count 4.12 M/mm3 (3.80-5.20)
[2022-03-14 19:16] LABS: Albumin, Blood 2.4 g/dL (3.4-5.0); Albumin/Globulin Ratio 0.6 (0.8-1.8); Bilirubin, Total 0.3 mg/dL (0.1-1.0); Bun/Creatinine Ratio 41.2 (12.0-20.0); Calcium, Blood 9.8 mg/dL (8.5-10.1); Creatinine, Blood 0.99 mg/dL (0.40-1.00); Globulin, Blood 3.7 g/dL (2.2-4.0); Potassium, Blood 3.7 mmol/L (3.5-5.5); Total Protein, Blood 6.1 g/dL (6.4-8.2)
--- NOTE | 2022-03-15 02:40 | NUR ---
REPORT RECIEVED FROM JUAN CARLOS WALL RN AT 0230 AND AWAITING PT T/F TO ROOM 336.
--- NOTE | 2022-03-15 02:50 | NUR ---
PT ARRIVED TO ROOM 336 AT 0242. SHE APPEARS ALERT AND ORIENTED TO SELF, SURROUNDINGS AND FOLLOWS INSTRUCTIONS BUT IS VERY DIFFICULT TO UNDERSTAND D/T SLURRED SPEECH FROM PRIOR STROKE. STAFF UNABLE TO OBTAIN HEALTH HX FROM PATIENT AT THIS TIME D/T BEING A POOR HISTORIAN. SHE COULDN'T RECALL WHICH SENIOR LIVING SHE CAME FROM AND DOESN'T KNOW HER HOME MEDS. SHE IS ABLE TO SPECIFY NEEDS AND ANSWER YES/NO APPROPRIATELY. PT WAS ORIENTED TO ROOM AND CALL SYSTEM AND WAS ABLE TO DEMONSTRATE CALL LIGHT USE. BED ALARM ARMED FOR POSSIBLE IMPULSIVITY. SHE'S CURRENTLY ON 8L O2 VIA OXIMIZER TO MAINTAIN SPO2 >90%. LS ARE COARSE W/INSP AND EXP WHEEZES NOTED. NO S/S RESP DISTRESS AT REST. SHE APPEARS PALE, SLIGHTLY DIAPHORETIC AND HAS COOL EXT'S W/TRACE EDEMA. PEG TUBE IS CLAMPED TO L.UPPER QUAD AND PT IS NPO. SHE WAS PLACED ON TELEMETRY W/HR 30'S0-40'S BPM, TECH EVALUATING RHYTHM AND WILL NOTIFY THIS RN ONCE DETERMINED. PLAN TO ALERT MD OF TRENDING DOWNWARD HR IN PRESENCE OF PM THAT WAS UNABLE TO BE INTERROGATED IN ER. PUREWIC CATH IN PLACE AND ATTENDS DRY. NO SKIN ISSUES OBSERVED.
--- NOTE | 2022-03-15 03:45 | NUR ---
MIRROR PAINTER ALERTED RN THAT PT HAS 2ND DEGREE BLOCK TYPE 2 W/HR NOW SUSTAINING 30'S BPM AND TOUCHING 20'S AT TIMES. SHE NOW C/O OF FAINT L.SIDED CHEST PAIN BUT CAN'T SPECIFY IF THIS IS CARDIAC OR RESPIRATORY IN ORIGIN FROM COVID. SHE DENIES ANY OTHER COMPLAINTS OR ACCOMPANIED S/S CARDIAC DISTRESS BUT IS HYPERENSIVE W/SBP 170'S AND WAS TITRATED UP TO 10L OXIMIZER TO MAINTAIN SPO2 >90%. MADE AWARE W/PCU T/F ORDER OBTAINED AT 0345. NO NEW ORDERS RECIEVED AT THIS TIME. AWAITING BED PLACEMENT.
--- NOTE | 2022-03-15 04:43 | NUR ---
REPORT CALLED TO IVONNE ENVIRONMENTAL SAMPLER AND TRANSFERRING PATIENT TO PCU 20.
--- NOTE | 2022-03-15 05:24 | NUR ---
TRANSFER NOTE REPORT FROM JENELLE MEDICAL RN. PT TO ROOM VIA HOSPITAL BED. VS TAKEN. PT ON 10L BY OXIMIZER AND SATTING 98%. SOME EPISODES OF BRADYCARDIA INTO THE 30S. PT REPORTS 4/10 LEFT CHEST PAIN BUT IS UNABLE TO DESCRIBE IT. NO CHANGE WITH BRADYCARDIA EPISODES. SHE IS NPO AT THIS TIME DUE TO PEG TUBE. PT HAS PACEMAKER TO LEFT CHEST WALL - WAS UNABLE TO BE INTERROGATED IN THE ER. PT REPOSITIONING INDEPENDENTLY IN THE BED. PT IS ALERT AND ORIENTED X2. BP IS 152/68. PT RESPONSIVE AND FOLLOWING DIRECTIONS. SOME SLURRED SPEECH BUT THIS IS BASELINE SINCE HER STROKE IN JUNE. PT HAS NO COMPLAINTS AT THIS TIME BESIDES FEELING TIRED.
[2022-03-15 06:32] LABS: BASOPHILS ABSOLUTE AUTO 0.02 K/mm3 (0.00-0.23); BASOPHILS PERCENT AUTO 0 % (0-2); EOSINOPHILS PERCENT AUTO 0 % (0-6); Hematocrit 36.9 % (33.0-51.0); IMMATURE GRAN ABSOLUTE AUTO 0.06 K/mm3 (0.00-0.10); IMMATURE GRAN PERCENT AUTO 1 % (0-1); LYMPHOCYTES PERCENT AUTO 10 % (21-46); MONOCYTES ABSOLUTE AUTO 0.76 K/mm3 (0.16-1.47); MONOCYTES PERCENT AUTO 9 % (4-13); Mean Corpuscular HGB 27.8 pg (26.0-34.0); Mean Corpuscular HGB Conc 32.5 g/dL (31.5-36.5); Mean Corpuscular Volume 86 fL (80-100); Mean Platelet Volume 12.3 fL (9.1-12.4); NEUTROPHILS ABSOLUTE AUTO 6.73 K/mm3 (1.96-9.15); NEUTROPHILS PERCENT AUTO 80 % (41-73); Platelet Count 184 K/mm3 (150-400); RDW Coefficient Variation 15.2 % (11.7-14.2); RDW Standard Deviation 47.6 fL (35.1-46.3); Red Blood Cell Count 4.31 M/mm3 (3.80-5.20); White Blood Cell Count 8.37 K/mm3 (4.00-11.30)
[2022-03-15 06:47] LABS: Bun/Creatinine Ratio 43.3 (12.0-20.0); Calcium, Blood 9.4 mg/dL (8.5-10.1); Creatinine, Blood 0.97 mg/dL (0.40-1.00); Potassium, Blood 3.9 mmol/L (3.5-5.5)
--- NOTE | 2022-03-15 17:40 | NUR ---
SHIFT SUMMARY; ASSUMED CARE AT 0700. A/A/OX3. HX OF DEMENTIA AND CONFUSION PER CAREGIVER ALAYNA. 5L 02 AT BEGINNING OF SHIFT DECREASED 4L VIA OXYMIZER. MOVES SELF ON GURNEY NEEDED. PURWICK IN PLACE, CHANGED DURING SHIFT WITH RUBEN CARE AND LINEN CHANGE. TUBE FEEDING STARTED TODAY TO PEG TUBE AT 25ML/HR PER ORDERS. WILL INCREASE PER ORDERS. WET PRODUCTIVE COUGH DURING SHIFT, VSS, WILL CONTINUE TO MONITOR AND TREAT UNTIL CHANGE OF SHIFT.
--- NOTE | 2022-03-16 01:04 | NUR ---
TUBE FEED RATE INCREASED TO 35 MLS/HR FROM 25 MLS/HR
--- NOTE | 2022-03-16 07:38 | NUR ---
SHIFT SUMMARY PT AOX3, HAS DIFFICULTY COMMUNICATING SOME THOUGHTS AND NEEDS. IF GIVEN TIME, ABLE TO VERBALIZE NEEDS AFTER A FEW TRIES AT FINDING THE WORDS. PT ABLE TO ANSWER SOME QUESTIONS APPROPRIATELY WHEN ASKED. FOLLOWS DIRECTIONS BY THIS RN. HR MAINTAINS 30-50 BPM. PAUSES NOTED BY TELE VARY FROM 2.14-2.48 SECS. PT CONTINUES TO BE AROUSE FROM SLEEP, DENIES FEELING LIGHTHEADED OR DIZZY. NO HYPOTENSION NOTED T/O SHIFT. SOME HTN WITH SYSTOLIC 150'S-160'S. PT'S HR GOT LOW 28-29 BPM BRIEFLY. PT SEEMS MORE TIRED THIS AM. IS C/O BACK PAIN. CONTINUES TO USE PUREWICK WITH SUCCESS. DARK YELLOW URINE DRAINING THROUGH PUREWICK. NO BM IN NIGHT. TUBE FEEDS CONTINUE AT 35 MLS/HR WITH 40 ML/HR FLUSH. CBG IN 200'S WITH CHECKS.
--- NOTE | 2022-03-16 18:30 | NUR ---
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 FOR NOW GETTING TUBE FEEDS VIA PEG TO GOAL. BLOOD SUGARS Q6 HAVE BEEN IN 250-280 CONSISTANTLY. USING SLIDING SCALE INSULIN. TELE INTERPRETED BY BARON MCKEON VERN 3RD DEGREE BLOCK BUT DIFFICULT RELANTE TO OCC PACER SPIKES TO INTERPRET. PT MAINTAINING SBP 140-160'S, MAP >80, ASYMPTOMATIC. LUPILLO CARDIO EVALUATED PT YESTERDAY AND PT HAS ASYMPTOMATIC BRADYCARDIA, PLAN TO REPLACE PACER ONCE TREATED FOR COVID. PT IS INCONT USING PUREWIK AND ON BEDREST, ROUTINE TURNS. BASELINE IS WALKER SBA. PT'S LUNGS DIM IN BASES, SCATTERED RHONCHI, OXYMIZER AT 6L SATS 94-96%, HAS A STRONG COUGH AND CLEARING CLEAR WITH OLD BLOOD TINGED SPUTUM. MIX UP IN PT DR GILLIS, CALLED [facility] [address] TO COME EVAL PT LATER THIS PM. WILL REPORT TO DOREEN NUR
[2022-03-17 04:03] LABS: BASOPHILS PERCENT AUTO 0 % (0-2); EOSINOPHILS PERCENT AUTO 0 % (0-6); Hematocrit 36.3 % (33.0-51.0); Hemoglobin 11.9 g/dL (11.5-16.0); IMMATURE GRAN ABSOLUTE AUTO 0.02 K/mm3 (0.00-0.10); IMMATURE GRAN PERCENT AUTO 0 % (0-1); LYMPHOCYTES ABSOLUTE AUTO 1.09 K/mm3 (0.84-5.20); LYMPHOCYTES PERCENT AUTO 13 % (21-46); MONOCYTES ABSOLUTE AUTO 0.91 K/mm3 (0.16-1.47); MONOCYTES PERCENT AUTO 11 % (4-13); Mean Corpuscular HGB 27.5 pg (26.0-34.0); Mean Corpuscular HGB Conc 32.8 g/dL (31.5-36.5); Mean Corpuscular Volume 84 fL (80-100); Mean Platelet Volume 12.4 fL (9.1-12.4); NEUTROPHILS ABSOLUTE AUTO 6.16 K/mm3 (1.96-9.15); NEUTROPHILS PERCENT AUTO 75 % (41-73); Platelet Count 221 K/mm3 (150-400); Red Blood Cell Count 4.33 M/mm3 (3.80-5.20); White Blood Cell Count 8.18 K/mm3 (4.00-11.30)
[2022-03-17 04:24] LABS: Bun/Creatinine Ratio 55.8 (12.0-20.0); Calcium, Blood 8.9 mg/dL (8.5-10.1); Creatinine, Blood 1.13 mg/dL (0.40-1.00); Potassium, Blood 3.8 mmol/L (3.5-5.5)
--- NOTE | 2022-03-17 05:47 | NUR ---
SCHOOL BUS OPERATOR SUMMARY PT IS ALERT AND ORIENTED X0-1. SHE IS ABLE TO TELL ME HER NAME BUT NOT HER BIRTHDAY AND NO OTHER INFORMATION. FOLLOWING COMMANDS. PT HAS SOME RIGHT SIDED WEAKNESS AND DYSARTHRIA, CHRONIC FOR HER. SHE IS HAVING MANY WATERY BMS. TUBE FEED CURRENT AT 90 MLS/HR AND PT TOLERATING WELL. SHE HAS BEEN STAYING IN THE 30S ON TELE WITH ONE EPISODE OF DROPPING TO 28. PT IS ASYMPTOMATIC BESIDES FEELING TIRED. PRODUCTIVE COUGH. STILL ON 6L BY OXIMIZER WITH ONE EPISODE OF DESATURATION WHILE SLEEPING. PT ABLE TO ASSIST WITH ROLLS AND CHANGES, ATTEMPTING TO HELP GET BACK TO BASELINE.
--- NOTE | 2022-03-17 09:29 | NUR ---
Dr. Domingo is here to round on the patient. Pt is alert to name and following directions. She recognized her stuffed animal with a big smile when I brought it in to her.
--- NOTE | 2022-03-17 11:49 | NUR ---
Appears to be sleeping, left side-lying while on 5 l/min oxymizer. spo2 91% at this time. HOB is elevated. Earlier, I encouraged the pt to do deep breathing and coughing while awake. sputum color is yellow.
--- NOTE | 2022-03-17 15:29 | NUR ---
Pt was assisted with sponge bath while sitting on side of the bed. She tolerated this very well. Oxygen was gradually weaned during the activity, as it improved with her sitting up , standing and using the walker to sit in the chair. She is presently sitting up in the chair, watching TV and spo2 is 93-96% without dyspnea, on 2 l/min O2 nasal cannula delivery. she states that she feels so much better after having a bath. Warm blankets provided for her lap.
[2022-03-18 04:04] LABS: BASOPHILS ABSOLUTE AUTO 0.01 K/mm3 (0.00-0.23); BASOPHILS PERCENT AUTO 0 % (0-2); EOSINOPHILS ABSOLUTE AUTO 0.01 K/mm3 (0.00-0.68); EOSINOPHILS PERCENT AUTO 0 % (0-6); Hematocrit 36.1 % (33.0-51.0); IMMATURE GRAN ABSOLUTE AUTO 0.04 K/mm3 (0.00-0.10); IMMATURE GRAN PERCENT AUTO 1 % (0-1); LYMPHOCYTES PERCENT AUTO 14 % (21-46); MONOCYTES ABSOLUTE AUTO 0.95 K/mm3 (0.16-1.47); MONOCYTES PERCENT AUTO 14 % (4-13); Mean Corpuscular HGB 27.9 pg (26.0-34.0); Mean Corpuscular HGB Conc 33.2 g/dL (31.5-36.5); Mean Corpuscular Volume 84 fL (80-100); Mean Platelet Volume 12.8 fL (9.1-12.4); NEUTROPHILS ABSOLUTE AUTO 4.98 K/mm3 (1.96-9.15); NEUTROPHILS PERCENT AUTO 71 % (41-73); Platelet Count 216 K/mm3 (150-400); RDW Coefficient Variation 14.8 % (11.7-14.2); RDW Standard Deviation 45.1 fL (35.1-46.3); White Blood Cell Count 6.99 K/mm3 (4.00-11.30)
[2022-03-18 04:24] LABS: Bun/Creatinine Ratio 56.9 (12.0-20.0); Calcium, Blood 8.6 mg/dL (8.5-10.1); Creatinine, Blood 1.09 mg/dL (0.40-1.00)
--- NOTE | 2022-03-18 07:09 | NUR ---
QUARRY SUPERVISOR DIMENSION STONE SUMMARY ASSUMED CARE OF PT AT 1900. PT IS ALERT AND ORIENTED X0-1. SHE IS PLEASANT AND COOPERATIVE. APPEARS MORE PALE AND COLD THIS SHIFT. PT WITH HR REMAINING IN THE 30S WITH INTERMITTENT PACER SPIKES AND A SECOND DEGREE TYPE I/II BLOCK. SHE DID DROP INTO THE MID TO HIGH 20S A FEW TIMES DURING THE SHIFT BUT RETURNED TO THE 30S. PT HAD DIFFICULTY WITH TRANSFER FROM THE CHAIR BACK TO BED DUE TO WEAKNESS. SHE HAS BECOME INCREASINGLY FATIGUED THROUGHOUT THE SHIFT WITH ROLLING AND ATTENDS CHANGES. TUBE FEED WAS STOPPED AT 2100. PT CBG WAS IN THE HIGH 300S AND HCS WAS IMPLEMENTED. CBG WAS 109 THIS MORNING - NO CORRECTION GIVEN. NO BMS THROUGHOUT THE SHIFT. INCONTINENT OF BOWEL AND BLADDER. LUNG SOUNDS DIMINISHED IN THE BASES. PT GIVEN ONE DOSE OF IV REMDESIVIR THIS MORNING.
--- NOTE | 2022-03-18 07:15 | NUR ---
Remdisivir infusion stopped; will review with day hospitalist before continuing.
--- NOTE | 2022-03-18 07:35 | NUR ---
0700 Pt is calling on her call light due to beeping IV machine. States that she is also wet in her attends. States that she feels exhausted, that she did not sleep well last night at all. Appears pale, dry skin, appropriate in conversation, but tired. PEG tube flushed with 100 cc water and tube feeding started per orders at 0715. Assisted with pericare and attends change, and repositioned to her comfort on the right side lying position. Once the patient did have a productive cough. Color of sputum has been ly. Spo2 93% on 2 l/min o2 delivery. Baseline home dose 2 l/min. Lung sounds have fine crackles in bases, no wheezing. RR is 16/minute at this time.
--- NOTE | 2022-03-18 10:59 | NUR ---
Up to chair working with PT. States that she feels really good after getting up after she had a nap this morning until 10 am. Spo2 91-95% at rest and during activity, while on 3 l/min nc delivery. Occasional cough with small amount of thick ly sputum production. Heart rate 43-59 during the activity. Incontinence of urine in attends noted. Assisted with pericare/attends change. She did her own oral care and washed her face. Working with OT at this time.
--- NOTE | 2022-03-18 12:42 | NUR ---
Pt states that she is really tired of being in the chair. CBG checked, insulin administered as ordered. Standby assist with Geriwalker to BSC to void and have small BM. Pt attends changed as she has urinary incontinence. Assist with cords/tubes for transfer back to bed from BSC and geriwalker also in use by the pt; gait belt on for safety.
--- NOTE | 2022-03-18 13:43 | NUR ---
Pt's spo2 while in bed is better if she is in side-lying position. Lying flat on her back, even with HOB elevated to her comfort level, requires more oxygen delivery.
--- NOTE | 2022-03-18 13:54 | NUR ---
Gave Tylenol via PEG tube for c/o mild headache. She is sleeping now on left side lying position, spo2 93%, RR 20, oxygen delivery 3 l/min via n.c.
--- NOTE | 2022-03-18 15:10 | NUR ---
Phone call from Jaclyn, the caregiver at [facility] where the pt lives. States that the pt has oxygen prescribed for her 2 l PRN, and that she does need it most of the time, but the pt prefers to only use it when she is in her own room. States pt at baseline doesn't sleep well at night, and requested sleep aid, but they are waiting on the results of the outpatient sleep study before anything is prescribed for her. Jaclyn said that the pt spends the majority of her day in her room, wearing oxygen, watching TV. She is followed by a speech therapist Elsa Carolina, and was cleared in January for puree food , honey thick liquids, no straws, but oral medications. However, when she started to have the cough on Monday the caregiver made her NPO out of concern for risk of aspiration. Gave Jaclyn update on the pt's condition, activity today and plan of care.
--- NOTE | 2022-03-18 18:04 | NUR ---
Assisted to BSC to void and have small BM. Pericare and attends change for urinary incontinence.
--- NOTE | 2022-03-18 22:22 | NUR ---
ASSUMPTION OF CARE THIS RN ASSUMED CARE OF PATIENT AT 1900. REPORT TAKEN FROM PINKY NUR. PATIENT'S HR CONTINUES TO BE IN A 2ND DEGREE HB WITH PACER SPIKES WITH HR MAINTAINING IN THE 30'S. ATROPINE, EPI, AND ZOLL IN ROOM. PATIENT DENIES CHEST PAIN/PRESSURE. AFEBRILE. BP STABLE. MEDICATING PER EMAR. PATIENT RECEIVING TUBE FEEDINGS PER ORDER; TOLERATING WELL. STAFF MAINTAINING COVID PRECAUTIONS FOR PATIENT WITH PPE USE. BED ALARM ON. PATIENT APPEARS TO BE RESTING WITH EQUAL CHEST RISE/FALL NOTED. BED IN LOWEST POSITION AND CALL LIGHT WITHIN REACH.
[2022-03-19 04:27] LABS: BASOPHILS PERCENT AUTO 0 % (0-2); EOSINOPHILS ABSOLUTE AUTO 0.01 K/mm3 (0.00-0.68); EOSINOPHILS PERCENT AUTO 0 % (0-6); Hemoglobin 11.4 g/dL (11.5-16.0); IMMATURE GRAN ABSOLUTE AUTO 0.07 K/mm3 (0.00-0.10); IMMATURE GRAN PERCENT AUTO 1 % (0-1); LYMPHOCYTES ABSOLUTE AUTO 1.21 K/mm3 (0.84-5.20); LYMPHOCYTES PERCENT AUTO 19 % (21-46); MONOCYTES ABSOLUTE AUTO 0.99 K/mm3 (0.16-1.47); MONOCYTES PERCENT AUTO 15 % (4-13); Mean Corpuscular HGB 27.5 pg (26.0-34.0); Mean Corpuscular HGB Conc 32.6 g/dL (31.5-36.5); Mean Corpuscular Volume 84 fL (80-100); Mean Platelet Volume 12.3 fL (9.1-12.4); NEUTROPHILS ABSOLUTE AUTO 4.26 K/mm3 (1.96-9.15); NEUTROPHILS PERCENT AUTO 65 % (41-73); Platelet Count 229 K/mm3 (150-400); RDW Coefficient Variation 14.8 % (11.7-14.2); RDW Standard Deviation 45.5 fL (35.1-46.3); Red Blood Cell Count 4.15 M/mm3 (3.80-5.20); White Blood Cell Count 6.54 K/mm3 (4.00-11.30)
--- NOTE | 2022-03-19 04:43 | NUR ---
SHIFT SUMMARY PATIENT ALERT AND ORIENTED TO SELF/PLACE ONLY. PATIENT IS ABLE TO MAKE NEEDS KNOWN BUT HAS SLURRED SPEECH DUE TO PREVIOUS CVA IN JUNE. PATIENT IS ABLE TO TURN SELF IN BED AND IS A MINIMAL 1X PER ASSIST TO BSC WITH FWW. PATIENT IS INCONTINENT AND REQUIRES TO BE CHECKED FREQUENTLY DURING THE SHIFT. PATIENT FINISHED BOLUS PEG TUBE FEEDING AT 2300 THIS SHIFT AND CONTINUES TO RECEIVE 40ML/HR FLUSHES WITH WATER VIA PEG TUBE PER ORDER. PATIENT APPEARS TO BE TOLERATING WELL AND DENIES NAUSEA. MEDIUM SOFT BM THIS SHIFT, CREAM APPLIED TO RECTAL AREA DUE TO SENSITIVITY STATED BY PATIENT. PEG TUBE WNL, WITH GUAZE DRESSING AT SITE. NO ACUTE CHANGES DURING THIS SHIFT. PATIENT CONTINUES TO BE IN A 2ND DEGREE HB WITH HR IN THE MID 30'S TO LOW 40'S; DENIES SYMPTOMS OF BRADYCARDIA. BP STABLE. EPI, ATROPINE, ZOLL AT BEDSIDE. PATIENT ON 4L VIA NC WITH O2 SATS >92%; PATIENT DESATS WHILE ON BACK BUT MAINTAINS O2 SATS WHILE ON SIDE. MEDICATING PER EMAR. BED IN LOWEST POSITION, BED ALARM ON, CALL LIGHT WITHIN REACH. WILL CONTINUE TO MONITOR UNTIL SHIFT CHANGE AT 0700.
[2022-03-19 04:53] LABS: Bun/Creatinine Ratio 54.2 (12.0-20.0); Calcium, Blood 8.6 mg/dL (8.5-10.1); Creatinine, Blood 0.98 mg/dL (0.40-1.00); Potassium, Blood 4.2 mmol/L (3.5-5.5)
--- NOTE | 2022-03-19 07:48 | NUR ---
Tube feeding started per orders.
--- NOTE | 2022-03-19 07:57 | NUR ---
Pt awakened for vital signs and assessment. Noted attends were soiled with urine. Pericare done and attends changed. Repositioning from side to back and then to left side again; pt was encouraged to deep breathe and cough, which she did. Productive cough producing small amounts of ly sputum. . Oxygen delivery was decreased from 5 to 3 l/min and spo2 is now 98-100%. Purewick placed to prevent skin breakdown from constant moisture from urinary incontinence. Pt went back to sleep, and noted urine output almost immediately.
--- NOTE | 2022-03-19 11:11 | NUR ---
Pt is sitting in recliner chair. She prefers it to be reclined, but this does increase her oxygen requirements slightly. Presently on 3.5 l/min and spo2 is 90%. It was 93-95% while she was sitting upright. Will provide incentive spirometer and flutter valve, and instruct patient on their use and provide them to help encourage deep breathing and coughing to expectorate secretions.
--- NOTE | 2022-03-19 11:55 | NUR ---
Pt was instructed on use of IS and flutter valve. She demonstrated use of each while sitting upright in the chair. Spo2 96% while on 3.5 l/min of O2.
--- NOTE | 2022-03-19 12:19 | NUR ---
Assisted to BSC to have BM, and then back to bed. Tube feeding continuing, and purewick in place.
--- NOTE | 2022-03-19 15:58 | NUR ---
Pt lying in bed, HOB elevated after a bed bath. Using her IS and flutter valve for pulmonary toilet.
--- NOTE | 2022-03-19 20:45 | NUR ---
ASSUMPTION OF CARE THIS RN ASSUMED CARE OF PATIENT AT 1900. REPORT TAKEN FROM PINKY NUR. PATIENT ON 3L NC AT SHIFT CHANGE WITH SATS >92%. PATIENT IS AWAKE AND USING FLUTTER VALVE TO HELP CLEAR SECRETIONS; DEEP BREATHING AND COUGHING ENCOURAGED BY THIS RN WITH ANDRADE SECRETIONS CLEARED. PATIENT CONTINUES TO HAVE COARSE LUNG SOUNDS WITH EXPIRATION HEARD THROUGH AUSCULTATION. CONTINUED ENCOURAGEMENT FOR LUNG EXERCISES GIVEN; PATIENT CONTINUES USING INCENTIVE SPIROMETER AND FLUTTER VALVE. TUBE FEEDING TO BE COMPLETE AT 2100 PER ORDER WITH CONTINUED 40MLS/HR FLUSHING OF WATER FOR HYDRATION THROUGH THE NIGHT. MEDICATING PER EMAR. PUREWICK IN PLACE DUE TO INCREASED URINE OUTPUT AND INCONTINENCE TO HELP PREVENT SKIN BREAKDOWN. BED IN LOWEST POSITION AND CALL LIGHT WITHIN REACH.
[2022-03-20 03:49] LABS: BASOPHILS ABSOLUTE AUTO 0.01 K/mm3 (0.00-0.23); BASOPHILS PERCENT AUTO 0 % (0-2); EOSINOPHILS ABSOLUTE AUTO 0.01 K/mm3 (0.00-0.68); EOSINOPHILS PERCENT AUTO 0 % (0-6); Hematocrit 35.7 % (33.0-51.0); IMMATURE GRAN ABSOLUTE AUTO 0.08 K/mm3 (0.00-0.10); IMMATURE GRAN PERCENT AUTO 1 % (0-1); LYMPHOCYTES PERCENT AUTO 22 % (21-46); MONOCYTES ABSOLUTE AUTO 1.07 K/mm3 (0.16-1.47); MONOCYTES PERCENT AUTO 16 % (4-13); Mean Corpuscular HGB Conc 33.6 g/dL (31.5-36.5); Mean Corpuscular Volume 83 fL (80-100); Mean Platelet Volume 12.8 fL (9.1-12.4); NEUTROPHILS ABSOLUTE AUTO 4.14 K/mm3 (1.96-9.15); NEUTROPHILS PERCENT AUTO 61 % (41-73); Platelet Count 235 K/mm3 (150-400); RDW Coefficient Variation 14.7 % (11.7-14.2); RDW Standard Deviation 44.9 fL (35.1-46.3); Red Blood Cell Count 4.29 M/mm3 (3.80-5.20); White Blood Cell Count 6.81 K/mm3 (4.00-11.30)
[2022-03-20 04:02] LABS: Bun/Creatinine Ratio 49.5 (12.0-20.0); Calcium, Blood 8.7 mg/dL (8.5-10.1); Creatinine, Blood 1.01 mg/dL (0.40-1.00); Potassium, Blood 4.3 mmol/L (3.5-5.5)
--- NOTE | 2022-03-20 04:54 | NUR ---
SHIFT SUMMARY NO ACUTE CHANGES DURING THIS SHIFT. PATIENT CONTINUES TO BE ALERT AND ORIENTED TO SELF AND PLACE/SURROUNDINGS. ABLE TO MAKE NEEDS KNOWN. PATIENT ON 3-4L VIA NASAL CANULA THROUGH THE NIGHT TO MAINTAIN O2 SATS >92%. BP STABLE. PATIENT REMAINS IN A 2ND DEGREE HB WITH OCCASIONAL PACER SPIKES WITH HR 35-45BPM. PATIENT'S HR DROPPED BRIEFLY TO 26 DURING THIS SHIFT. PATIENT REMAINS ASYMPTOMATIC. AFEBRILE. COVID POSITIVE WITH ENHANCED ISOLATION PRECAUTIONS IN PLACE. PATIENT BEING ENCOURAGED TO DEEP BREATHE AND COUGH SECRETIONS; THIN/ANDRADE SECRETIONS NOTED. FLUTTER VALVE AND INCENTIVE SPIROMETER AT BEDSIDE. PATIENT DENIES PAIN. PUREWICK IN PLACE TO PREVENT SKIN BREAKDOWN DUE TO INCONTINENCE. PATIENT CALM AND COOPERATIVE WITH CARE. INDEPENDENT WITH REPOSITIONING IN BED. ZOLL, ATROPINE, AND EPI AT BEDSIDE. BED IN LOWEST POSITION AND CALL LIGHT WITHIN REACH.
--- NOTE | 2022-03-20 06:00 | NUR ---
Call to Dr Cooney This RN calls to notify Dr Cooney of pt low CBG read this am of 68 and admin of 1/2 amp of D50 per hypoglycemic protocol after discussing with wood shingle roofer Matilda. Dr Cooney updated on plan to start tube feed early at this time. Notified of plan to recheck cbg following admin of dextrose.
--- NOTE | 2022-03-20 07:30 | NUR ---
ASSUMED CARE: PT RESTING QUIETLY AT THIS TIME. HB ON TELE, HR IN 30S AT THIS TIME. TF RUNNING PER ORDERS FROM MOTOR AND CHASSIS INSPECTOR DOC DUE TO PT'S LOW CBG THIS AM. 3L O2 AT THIS TIME. NO ACUTE NEEDS OR CONCERNS.
--- NOTE | 2022-03-20 18:08 | NUR ---
SHIFT SUMMARY: PT REMAINS ON 4L NC AT THIS TIME. ATTEMPTED TO TITRATE DOWN AND PT DESATURATED. HB IN THE 30S TO 40S ON TELE. PLAN IS TO TITRATE STEROIDS BEFORE PACER BATTERY CAN BE CHANGED. UP IN RECLINER ONCE TODAY. DENIES FURTHER NEEDS OR CONCERNS AT THIS TIME.
--- NOTE | 2022-03-21 07:40 | NUR ---
SHIFT SUMMARY PT CONFUSED REGARDING TIME AND SITUATION BUT ORIENTED TO SELF, FAMILY, AND FOLLOWS DIRECTIONS BY THIS RN. IS INVOLVED IN CARE AND ASSISTS ABLE WITH REPOSITIONING AND STATING NEEDS/DISCOMFORT. PT HAS SOME SLURRED SPEECH AT BASELINE FROM PRIOR STROKE. FLUSHES PROGRAMMED FOR 40MLS/EVERY HR THROUGH G-TUBE. PT TOLERATES WELL, NO C/O NAUSEA. PT'S HR CONTINUES AT 30'S-40'S OCCASIONALLY DOWN IN 20'S. BP REMAINS STABLE.
--- NOTE | 2022-03-21 12:39 | NUR ---
PER VERBAL ORDER FROM DR. BUTLER, STEROIDS JOSH'Eamon.
--- NOTE | 2022-03-21 17:39 | NUR ---
SHIFT SUMMARY; ASSUMED CARE AT 0700. A/A/OX3. 4L 02 VIA HUMIDIFIED NC. VSS, SATS 91-94%. WORKED WITH PT/OT/ST TODAY. UP TO RECLINER CHAIR FOR SEVERAL HOURS. ATTENDS IN PLACE WITH PURWICK PLACED TODAY. BED LINENS AND GOWN CHANGED TODAY. DIET ADVANCED BY SPEECH THERAPY TODAY. WILL CONTINUE TO MONITOR AND TREAT UNTIL CHANGE OF SHIFT.
--- NOTE | 2022-03-22 07:40 | NUR ---
SHIFT SUMMARY PT AOX3 T/O SHIFT. RESPONDS APPROPRIATELY TO QUESTIONS DESPITE BASELINE SLURRED SPEECH. DOES WELL WITH PO MEDS IN APPLESAUCE ONE AT A TIME AND SOME THICKENED SPOONFULS OF WATER. PT DENIED ANY ABD PAIN T/O SHIFT. FLUSHES PROGRAMMED AND CONTINUED AT 40 MLS/EVERY HR. PUREWICK DRAINING INCONTINENT EPISODES OF URINE. X2 SOFT BROWN INCONTINENT BM. HR CONTINUES 30'S-40'S, MORE INTO 25-29 BPM RANGE THIS AM IN EARLY AM HOURS. PT AWAKENS EASILY BUT APPEARS MORE DROWSY THIS AM.
--- NOTE | 2022-03-22 18:02 | NUR ---
ASSUMED CARE OF PT AT 0700. PT ABLE TO TOLERATE PO BREAKFAST, LUNCH AND DINNER TODAY W/O DIFFICULTY. TECHNOLOGY INTEGRATION SPECIALIST AYO NOTIFIED OF PT'S DIETARY CHANGES AND TUBE FEEDINGS HAVE BEEN DISCONTINUED. BRADYCARDIA CONTINUES WITH PT'S HR 30-40s. STERIODS HAVE BEEN STOPPED. THIS RN CONTACTED DR WESLEY FOR CARDIOLOGY F/U, DR CARDOSO TO TRANSFER PT TO ANOTHER FACILITY THERE WILL NOT BE ANY DOCTOR AVAILABLE TO PLACE A PACEMAKER UNTIL NEXT WEEK. DR BUTLER NOTFIED OF DR WESLEY'S RECOMMENDATION. PT WORKED WITH PT/OT/ST TODAY. NO OTHER CHANGES TO PT CONDITION NOTED AT THIS TIME, PT USES CALL LIGHT FOR NEEDS, CALL LIGHT IN REACH, WILL CONTINUE TO MONITOR AND GIVE REPORT TO NOC SHIFT RN.
--- NOTE | 2022-03-23 07:24 | NUR ---
SHIFT SUMMARY PT SEEMED MORE DROWSY/APATHETIC THAN USUAL THIS AM. FREQUENT SOFT STOOLS T/O SHIFT, FREQUENT TURNS AND CHANGES TO KEEP BOTTOM DRY AND PREVENT FURTHER IRRITATION. PT ASSISTS WITH TURNS. PEG-TUBE FLUSHES WELL W/O ISSUE. PT DENIES ANY ABD PAIN. HR CONTINUES IN 30'S 2ND DEGREE BLOCK, OCCASIONALLY 25-28 BPM. NEW IV INSERTED TO L FOREARM. PATENT AND FLUSHES.
--- NOTE | 2022-03-23 18:35 | NUR ---
HR NOTED 30s-40s T/O THE DAY. PT DENIES CP, REPORTS IMPROVING SOB. SHE IS ABLE TO MOVE SIDE TO SIDE IN BED W/O DIFFICULTY. SHE HAS REQUIRED INSULIN COVERAGE THORUGH AFTERNOON AND EVENING. VSS BESIDES THE LOW HR. AWAITING POSSIBLE COBRA TX FOR PACEMAKER BATTERY RREPLACEMENT. CAREGIVER HAS BEEN UPDATED. PT IS SUPERVISED DURING MEALS, SHE EATS WELL W/O DIFFICULTY.
[2022-03-24 04:34] LABS: BASOPHILS ABSOLUTE AUTO 0.03 K/mm3 (0.00-0.23); BASOPHILS PERCENT AUTO 0 % (0-2); EOSINOPHILS ABSOLUTE AUTO 0.19 K/mm3 (0.00-0.68); EOSINOPHILS PERCENT AUTO 2 % (0-6); Hematocrit 34.1 % (33.0-51.0); Hemoglobin 10.8 g/dL (11.5-16.0); IMMATURE GRAN ABSOLUTE AUTO 0.08 K/mm3 (0.00-0.10); IMMATURE GRAN PERCENT AUTO 1 % (0-1); LYMPHOCYTES ABSOLUTE AUTO 1.59 K/mm3 (0.84-5.20); LYMPHOCYTES PERCENT AUTO 18 % (21-46); MONOCYTES ABSOLUTE AUTO 1.27 K/mm3 (0.16-1.47); MONOCYTES PERCENT AUTO 15 % (4-13); Mean Corpuscular HGB 27.6 pg (26.0-34.0); Mean Corpuscular HGB Conc 31.7 g/dL (31.5-36.5); Mean Corpuscular Volume 87 fL (80-100); Mean Platelet Volume 12.3 fL (9.1-12.4); NEUTROPHILS ABSOLUTE AUTO 5.51 K/mm3 (1.96-9.15); NEUTROPHILS PERCENT AUTO 64 % (41-73); Platelet Count 248 K/mm3 (150-400); RDW Coefficient Variation 14.7 % (11.7-14.2); RDW Standard Deviation 47.2 fL (35.1-46.3); Red Blood Cell Count 3.91 M/mm3 (3.80-5.20); White Blood Cell Count 8.67 K/mm3 (4.00-11.30)
[2022-03-24 04:58] LABS: Albumin, Blood 1.8 g/dL (3.4-5.0); Albumin/Globulin Ratio 0.5 (0.8-1.8); Bilirubin, Total 0.5 mg/dL (0.1-1.0); Bun/Creatinine Ratio 29.7 (12.0-20.0); Calcium, Blood 8.2 mg/dL (8.5-10.1); Creatinine, Blood 1.01 mg/dL (0.40-1.00); Globulin, Blood 3.4 g/dL (2.2-4.0); Potassium, Blood 4.4 mmol/L (3.5-5.5); Total Protein, Blood 5.2 g/dL (6.4-8.2)
--- NOTE | 2022-03-24 06:20 | NUR ---
TELEVISION NEWSCAST DIRECTOR SUMMARY PT IS ALERT AND ORIENTED X2, WHICH IS HER BASELINE FOLLOWING THE STROKE. SHE IS PLEASANT AND COOPERATIVE. HR REMAINS IN THE 30S WITH SOME DIPS TO MID/HIGH 20S FOR VERY SHORT PERIODS. PT IS ASYMPTOMATIC. SHE IS STILL IN A SECOND DEGREE TYPE I/II WITH INTERMITTENT PACER SPIKES. PT IS INCONTINENT. HAVING BROWN WATERY STOOLS. RESIDUAL RIGHT SIDED WEAKNESS FROM THE CVA WITH SOME EXPRESSIVE APHASIA. PT FOLLOWING COMMANDS. HAS NEEDED INCREASE IN OXYGEN AT NIGHT DUE TO DESATURATION INTO THE 80S - NC PLACED IN HER MOUTH DUE TO MOUTH BREATHING AND INCREASED TO 8L WITH IMPROVEMENT. PT STILL AWAITING BED TO BECOME AVAILABLE AT [facility].
--- NOTE | 2022-03-24 08:15 | NUR ---
THIS RN AND PCT DENILSON TO ROOM TO ASSESS REPORTED OPEN WOUND TO PERIAREA. NO NOTED OPEN WOUNDS NOTED TO RUBEN AREA, THERE IS A SMALL AMOUNT OF REDNESS NOTED TO THE EXTERNAL HEMORRHOID. MEPILEX IS REMOVED FROM COCYX, THERE IS NO SKIN BREAKDOWN NOTED BELOW MEPILEX AND THE DRESSING WAS REPLACED. NEW PHOTO DOCUMENTATION WAS TAKEN OF THE HEMORRHOID THAT SHOWS SOME MILD REDNESS TO LEFT EDGE BUT NO OPEN WOUNDS WHICH WILL BE PLACED INTO THE CHART. TATYANA SEXTON THE CLINICAL COORDINATOR WAS CALLED IN THE ROOM TO VERIFY WHAT STAFF HAS NOTED. THERE IS NO DRAINAGE FROM HEMMHROID. PT HAD A SMALL SMEAR, WHICH WAS CLEANED AT THIS TIME. PT REPOSITIONED AND PREPARED FOR BREAKFAST
--- NOTE | 2022-03-24 13:40 | NUR ---
HEMMROIDS REASSESSED DURING BEDBATH, THERE IS NO NOTED CHANGE FROM THE PREVIOUS DAY SHIFT ASSESSMENT NOR THIS AM ASSESSMENT. THEY REMAIN PINK, NO OPEN WOUNDS, NO DRAINIAGE OR DISCHARGE FROM THE AREA. THOROUGH RUBEN CARE PERFORMED DURING BED BATH/ LINENS CHANGED. GOWN CHANGED.
--- NOTE | 2022-03-24 17:33 | NUR ---
PT HAD 4 SOFT-LOOSE BM'S TODAY WITH 4 UNMEASURED VOIDS. THERE REMAINS NO CHANGE TO THE CONDITION OF THE HEMMHORHOIDS, THEY REMAIN PINK, FREE OF DISCHARGE, THEY ARE TENDER TO TOUCH. BARRIER CREAM PLACED THEY HAVE BECOME MORE TENDER WITH EACH BM. DR BUTLER HAS BEEN NOTIFIED THAT PT MAY REQUIRE ADDITIONAL MEDICATION FOR HEMMRHOIDS PT DOES BECOME QUITE TEARFUL WITH BMS. OTHERWISE THERE HAS BEEN NO CHANGE IN BED STATUS WITH [facility], POSSIBLE TRANSFER TOMORROW FOR THE PACEMAKER CHANGE. PT ALERT, ORIENTED TO SELF AND SURROUNDINGS. PT USES CALL LIGHT APPROPRIATELY. HR 30-40s, OTHERWISE VSS. DENIES CP AND SOB. SHE WALKED WITH PHYSICAL THERAPY TODAY WHICH WAS TOLERATED WELL, BUT IS NOW VERY TIRED, PT STS THAT SHE IS NOT SURE SHE CAN EAT HER DINNER SHE IS TIRED, PT SLEEPING AT THE TIME OF THIS NOTE WILL HOLD TRAY UNTIL AWAKE PT HAS EXPRESSED THIS, BUT WILL HEAT WHEN SHE IS READY TO EAT.
--- NOTE | 2022-03-25 06:08 | NUR ---
COMMERCIAL LOAN UNDERWRITER SUMMARY PT IS AT BASELINE MENTATION AND ORIENTATION. SHE HAS BEEN IN THE 30S ON TELE WITH SECOND DEGREE HB TYPE II. HER BP DROPPED AROUND MIDNIGHT AND SHE WAS GIVEN A 500 ML LR BOLUS WITH IMPROVEMENT IN BP. PT HAS BEEN INCONTINENT OF STOOL AND URINE FOR MOST OF THE NIGHT BUT WAS ABLE TO USE A BEDPAN WHEN ASKED. LUNG SOUNDS DIMINISHED IN THE BASES. SHE CONTINUES TO HAVE PRODUCTIVE COUGH WITH ANDRADE MUCOUS. OXYGEN SATURATION DOES DECREASE DURING THE NIGHT BUT IMPROVES WITH WAKING PATIENT AND REPOSITIONING TO HER RIGHT SIDE, WHICH SHE REPORTS IS MORE COMFORTABLE. SHE DENIES ANY CHEST PRESSURE OR PAIN. ZOLL AT BEDSIDE. SHE IS ABLE TO ASSIST WITH ROLLING DURING THE NIGHT AND APPEARS TO BE GETTING STRONGER.
--- NOTE | 2022-03-25 17:16 | NUR ---
PT'S HEMRRHOIDS CONTINUE TO BE PINK WITH SOME MORE REDENED PATCHES, BUT APPEARS TO BE IMPROVING. THE RUBEN RECTAL AREA CONTINUES TO BE FREE OF ANY OPEN WOUNDS OR DRAINAGE. BARRIER CREAM WAS PLACED PT REPORTS SOME RELIEF WITH IT. PT WORKED WITH PHYSICAL THERAPY THIS SHIFT, SHE WAS UP TO CHAIR FOR HER [facility], SHE WAS ABLE TO AMBULATE BACK TO BED WITH FWW AND MINIMAL ASSISTANCE FROM THIS RN. VSS. O2 NEEDS HAVE ALTERNATED FROM 4-7L T/O THE DAY DEPENDING ON HER POSITIONING, O2 NEEDS ARE HIGHER WHEN SUPINE OR LT SIDE LYING. HR REMAINS 30-40, SHE IS ASYMPTOMATIC TO HR. USES CALL LIGHT APPROPRIATELY, IT IS IN REACH. LINENS CHANGED.
--- NOTE | 2022-03-25 20:41 | NUR ---
UPDATE CALL PLACED TO RESIDENT REGARDING PT MEDICATIONS. PATIENT NO LONGER HAS DUBHOFF. ORDER RECIEVED TO CHANGE ALL PT MEDICATIONS TO PO.
--- NOTE | 2022-03-26 06:28 | NUR ---
SHIFT SUMMARY PATIENT ALERT, ORIENTED x1-2. HR 30s-40s T/O NIGHT AND REMAINS ASYMPTOMATIC. PATIENT WEARING 6-7L NC AND O2 REQUIREMENTS ARE DEPENDENT ON PATIENT'S POSITION IN THE BED. ALL OTHER VITALS STABLE. PEG TUBE IN PLACE TO ABDOMEN. SEE PREVIOUS NOTE. PATIENT INCONTINENT OF BOWEL/BLADDER. ATTENDS IN PLACE. USES CALL LIGHT APPROPRRIATELY. NO OTHER SIGNIFICANT CHANGES, WILL REPORT TO DAY SHIFT RN.
--- NOTE | 2022-03-26 17:51 | NUR ---
SHIFT SUMMARY NO ACUTE CHANGES THIS SHIFT. PT REMAINS ALERT AND ANSWERS QUESTIONS APPROPRIATELY WHEN AWAKE. PT HAS DENIED PAIN OR SOB THIS SHIFT. PT REMAINS ON 7L O2 NC. VITAL SIGNS STABLE. HR REMAINS 30-40'S WITH OCCASIONAL PACED BEATS NOTED. PT ASYMPTOMATIC AND BP STABLE. POWERGLIDE TO ZOE SALINE LOCKED. PT ABLE TO ASSIST WITH TURNS AND REPOSITIONING WELL. PT WITH ATTENDS IN PLACE. PT WITH MULTIPLE INCONTINENT VOIDS AND BM'S THIS SHIFT. PEG TUBE REMAINS C/D/I, CLAMMPED. PT TAKING PO INTAKE WELL. WILL CONTINUE TO MONITOR AND REPORT OFF TO ONCOMING RN.
--- NOTE | 2022-03-27 06:30 | NUR ---
SHIFT SUMMARY PATIENT ALERT AND ORIENTED x1-2, BP STABLE, HR REMAINS UNCHANGES RANGING 30-40s AND PATIENT CONTINUES TO BE ASYMPTOMATIC. PATIENT WEARING 4-5l NC T/O NIGHT WITH O2 SAT >90%. INCONTINENT OF BOWEL/BLADDER, ATTENDS IN PLACE. PATIENT ABLE TO TURN SELF IN BED WITH MINIMAL ASSIST. NO OTHER SIGNIFICANT CHANGES THIS SHIFT, WILL REPORT TO DAY SHIFT RN.
--- NOTE | 2022-03-27 18:09 | NUR ---
Shift Summary Pt has been resting in bed throughout the day. At handoff report in the AM, Music Theory Professor notified that SpO2 was reading 87%, supplemental oxygen was titrated up to 9L/min, it was then titrated down to 8L/min and SpO2 remained steady >90%. Pt has repositioned self frequently for pressure/comfort and has been able to make needs known and called appropriately. Pt has demonstrated a weak cough and stated that they are only capable of expectorating small quantites of sputum, this RN encouraged use of the flutter valve at bedside. All vital signs stable, no other changes in current condition.
--- NOTE | 2022-03-28 06:16 | NUR ---
SHIFT SUMMARY NO SIGNIFICANT CHANGES OVERNIGHT. PATIENT REMAINS ALERT AND ORIENTED x2-3. VSS, PATIENT MAINTAINING A HR OF 30-35 OVERNIGHT WITH OCCASIONAL PACING. WEARING 8L NC WITH O2 SAT MID 90s. INCONTINENT OF BOWEL/BLADDER, ATTENDS IN PLACE. PATIENT ABLE TO HELP STAFF MOVE IN THE BED INDEPENDENTLY FOR ATTENDS CHANGES AND TURNS. NPO FOR POSSIBLE PROCEDURE TODAY. WILL REPORT TO DAY SHIFT RN.
[2022-03-28 10:07] LABS: BASOPHILS ABSOLUTE AUTO 0.02 K/mm3 (0.00-0.23); BASOPHILS PERCENT AUTO 0 % (0-2); EOSINOPHILS ABSOLUTE AUTO 0.22 K/mm3 (0.00-0.68); EOSINOPHILS PERCENT AUTO 3 % (0-6); Hematocrit 31.7 % (33.0-51.0); Hemoglobin 9.9 g/dL (11.5-16.0); IMMATURE GRAN ABSOLUTE AUTO 0.03 K/mm3 (0.00-0.10); IMMATURE GRAN PERCENT AUTO 0 % (0-1); LYMPHOCYTES ABSOLUTE AUTO 1.56 K/mm3 (0.84-5.20); LYMPHOCYTES PERCENT AUTO 20 % (21-46); MONOCYTES ABSOLUTE AUTO 0.98 K/mm3 (0.16-1.47); MONOCYTES PERCENT AUTO 13 % (4-13); Mean Corpuscular HGB 27.6 pg (26.0-34.0); Mean Corpuscular HGB Conc 31.2 g/dL (31.5-36.5); Mean Corpuscular Volume 88 fL (80-100); Mean Platelet Volume 12.1 fL (9.1-12.4); NEUTROPHILS ABSOLUTE AUTO 4.82 K/mm3 (1.96-9.15); NEUTROPHILS PERCENT AUTO 63 % (41-73); Platelet Count 232 K/mm3 (150-400); RDW Coefficient Variation 14.2 % (11.7-14.2); RDW Standard Deviation 45.9 fL (35.1-46.3); Red Blood Cell Count 3.59 M/mm3 (3.80-5.20); White Blood Cell Count 7.63 K/mm3 (4.00-11.30)
[2022-03-28 10:37] LABS: Bun/Creatinine Ratio 21.2 (12.0-20.0); Calcium, Blood 8.4 mg/dL (8.5-10.1); Creatinine, Blood 1.13 mg/dL (0.40-1.00); Potassium, Blood 4.5 mmol/L (3.5-5.5)
--- NOTE | 2022-03-28 18:24 | NUR ---
Shift Summary The pt has been resting in room throughout the day. Physical and occupational therapies worked with the pt today, they spent a large portion of the day up in the chair. Pt called appropriately for assistance and helped with cares where they were able to. Vital signs remain stable, no acute changes in condition. Pt stated that they are looking forward to moving forward with the planned procedure and subsequent discharge.
[2022-03-29 05:31] LABS: BASOPHILS ABSOLUTE AUTO 0.03 K/mm3 (0.00-0.23); BASOPHILS PERCENT AUTO 0 % (0-2); EOSINOPHILS ABSOLUTE AUTO 0.25 K/mm3 (0.00-0.68); EOSINOPHILS PERCENT AUTO 3 % (0-6); Hematocrit 31.9 % (33.0-51.0); Hemoglobin 9.9 g/dL (11.5-16.0); IMMATURE GRAN ABSOLUTE AUTO 0.03 K/mm3 (0.00-0.10); IMMATURE GRAN PERCENT AUTO 0 % (0-1); LYMPHOCYTES ABSOLUTE AUTO 1.41 K/mm3 (0.84-5.20); LYMPHOCYTES PERCENT AUTO 18 % (21-46); MONOCYTES ABSOLUTE AUTO 1.05 K/mm3 (0.16-1.47); MONOCYTES PERCENT AUTO 14 % (4-13); Mean Corpuscular HGB 27.4 pg (26.0-34.0); Mean Corpuscular Volume 88 fL (80-100); Mean Platelet Volume 12.1 fL (9.1-12.4); NEUTROPHILS ABSOLUTE AUTO 4.92 K/mm3 (1.96-9.15); NEUTROPHILS PERCENT AUTO 64 % (41-73); Platelet Count 237 K/mm3 (150-400); RDW Coefficient Variation 14.1 % (11.7-14.2); RDW Standard Deviation 45.2 fL (35.1-46.3); Red Blood Cell Count 3.61 M/mm3 (3.80-5.20); White Blood Cell Count 7.69 K/mm3 (4.00-11.30)
[2022-03-29 05:50] LABS: Bun/Creatinine Ratio 19.4 (12.0-20.0); Calcium, Blood 8.4 mg/dL (8.5-10.1); Creatinine, Blood 1.24 mg/dL (0.40-1.00); Potassium, Blood 4.5 mmol/L (3.5-5.5)
--- NOTE | 2022-03-29 06:25 | NUR ---
SHIFT SUMMARY PATIENT ALERT, ORIENTED x2-3, ABLE TO MAKE MOST NEEDS KNOWN TO STAFF. HR MID 30s. PATIENT PLACED ON VENTURI MASK DURING THE NIGHT D/T PATIENT MOUTH BREATHING. O2 INCREASED TO 11L OVERNIGHT. O2 SAT LOW TO MID 90s. PATIENT ABLE TO TURN SELF IN BED INDEPENDENTLY. ATTENDS IN PLACE D/T INCONTINENCE. NPO SINCE MIDNIGHT FOR POSSIBLE PROCEDURE TODAY. NO OTHER SIGNIFICANT CHANGES, WILL REPORT TO DAY SHIFT RN.
--- NOTE | 2022-03-29 18:19 | NUR ---
Shift Summary Pt has been resting in room. Pt worked with physical and occupational therapies today, they spent several hours up in the chair and continued to perform recommended exercises. Pt expressed disappointment and frustration at being rescheduled for their procedure again. Pt stated a desire to "go home" and also stated that they understand that they are not medically ready for discharge. Heart rhythm has remained a consistent third degree AV block with occasional paced beats at a rate of 38-40. Pt maintains that they are not experiencing symptoms though they remain consistently tired with little energy reserve. Lung sounds are clear and diminished in bilateral bases, supplemental oxygen was titrated down to 8L/min and they have maintained an SpO2 >90%. Pt has denied c/o pain or discomfort and has been able to frequently reposition self independently.
[2022-03-30 05:02] LABS: BASOPHILS ABSOLUTE AUTO 0.04 K/mm3 (0.00-0.23); BASOPHILS PERCENT AUTO 1 % (0-2); EOSINOPHILS ABSOLUTE AUTO 0.22 K/mm3 (0.00-0.68); EOSINOPHILS PERCENT AUTO 3 % (0-6); Hematocrit 30.7 % (33.0-51.0); Hemoglobin 9.6 g/dL (11.5-16.0); IMMATURE GRAN ABSOLUTE AUTO 0.03 K/mm3 (0.00-0.10); IMMATURE GRAN PERCENT AUTO 0 % (0-1); LYMPHOCYTES ABSOLUTE AUTO 1.45 K/mm3 (0.84-5.20); LYMPHOCYTES PERCENT AUTO 21 % (21-46); MONOCYTES ABSOLUTE AUTO 0.81 K/mm3 (0.16-1.47); MONOCYTES PERCENT AUTO 12 % (4-13); Mean Corpuscular HGB 27.6 pg (26.0-34.0); Mean Corpuscular HGB Conc 31.3 g/dL (31.5-36.5); Mean Corpuscular Volume 88 fL (80-100); Mean Platelet Volume 12.1 fL (9.1-12.4); NEUTROPHILS ABSOLUTE AUTO 4.39 K/mm3 (1.96-9.15); NEUTROPHILS PERCENT AUTO 63 % (41-73); Platelet Count 226 K/mm3 (150-400); RDW Standard Deviation 44.7 fL (35.1-46.3); Red Blood Cell Count 3.48 M/mm3 (3.80-5.20); White Blood Cell Count 6.94 K/mm3 (4.00-11.30)
[2022-03-30 05:32] LABS: Bun/Creatinine Ratio 21.7 (12.0-20.0); Calcium, Blood 8.5 mg/dL (8.5-10.1); Creatinine, Blood 1.06 mg/dL (0.40-1.00); Potassium, Blood 4.6 mmol/L (3.5-5.5)
--- NOTE | 2022-03-30 07:37 | NUR ---
SHIFT SUMMARY PT'S O2 INCREASED ON HIGH FLOW CANNULA WHEN PT LAYS DOWN TO SLEEP. INCREASED TO 10-14 LPM. SWITCHED TO VENTURI D/T MOUTH BREATHING NOTED WITH DESATURATION INTO 80'S WHILE LAYING IN BED ASLEEP. SWITCHED BACK TO HIGH FLOW THIS AM AND SET TO 13-14 LPM. SATS 93-99% DEPENDENT ON POSITIONING IN BED. REPOSITIONED SIDE TO SIDE T/O SHIFT, SEEMS TO DO BETTER OVERNIGHT ON R SIDE.
--- NOTE | 2022-03-30 14:12 | NUR ---
Assisted up to bedside commode to void. Pull up was dry. Pt had returned from the heart center before getting pacemaker due to STEMI in ED.
--- NOTE | 2022-03-30 15:46 | NUR ---
Pt is gone to heart center for pacemaker.
--- NOTE | 2022-03-30 17:42 | NUR ---
Pt returned from the laboratory aide after having her pacemaker placed. Left chest wall surgical dressing is intact, dry and clean save for one very small (less than 5 mm) spot of blood on the center of the gauze. Secure with transparent tegederm over it. Pt is sitting up, eating dinner. Oxygen requirements at this time are 6 l/min while eatin with a good appetite. She was given no sedation in the procedure and is wide awake at this time. Paced, 67 bpm by telemetry monitoring.
[2022-03-31 05:30] LABS: BASOPHILS ABSOLUTE AUTO 0.05 K/mm3 (0.00-0.23); BASOPHILS PERCENT AUTO 1 % (0-2); EOSINOPHILS ABSOLUTE AUTO 0.22 K/mm3 (0.00-0.68); EOSINOPHILS PERCENT AUTO 4 % (0-6); Hemoglobin 10.7 g/dL (11.5-16.0); IMMATURE GRAN ABSOLUTE AUTO 0.01 K/mm3 (0.00-0.10); IMMATURE GRAN PERCENT AUTO 0 % (0-1); LYMPHOCYTES PERCENT AUTO 16 % (21-46); MONOCYTES ABSOLUTE AUTO 0.64 K/mm3 (0.16-1.47); MONOCYTES PERCENT AUTO 10 % (4-13); Mean Corpuscular HGB 27.5 pg (26.0-34.0); Mean Corpuscular HGB Conc 31.5 g/dL (31.5-36.5); Mean Corpuscular Volume 87 fL (80-100); Mean Platelet Volume 12.1 fL (9.1-12.4); NEUTROPHILS ABSOLUTE AUTO 4.32 K/mm3 (1.96-9.15); NEUTROPHILS PERCENT AUTO 69 % (41-73); Platelet Count 253 K/mm3 (150-400); RDW Coefficient Variation 13.9 % (11.7-14.2); RDW Standard Deviation 44.2 fL (35.1-46.3); Red Blood Cell Count 3.89 M/mm3 (3.80-5.20); White Blood Cell Count 6.24 K/mm3 (4.00-11.30)
[2022-03-31 05:56] LABS: Bun/Creatinine Ratio 19.3 (12.0-20.0); Calcium, Blood 8.6 mg/dL (8.5-10.1); Creatinine, Blood 0.93 mg/dL (0.40-1.00); Potassium, Blood 4.2 mmol/L (3.5-5.5)
--- NOTE | 2022-03-31 06:17 | NUR ---
SHIFT SUMMARY NEURO: A&OX2. DECREASED SENSATION IN BL FEET, RIGHT MORE THAN LEFT, GENERALIZED WEAKNESS. TRACKS AND FOLLOWS COMMANDS. SLURRED SPEECH. CARDIAC: NORMOTENSIVE. PACED AT 60. RESPIRATORY: FINE CRACKLES IN BLL. OXYGEN REQUIREMENTS 8-10 L. GI/: MECH SOFT DIET. MEDS WITH APPLE SAUCE. PEG TUBE FLUSHES, BACTERIA FORMING IN TUBE. INCONTINENT OF STOOL AND URINE. MUSCULOSKELETAL: WEAK. MOVES ALL FOUR EXTREMITIES. INTEG: SURGICAL INCISION COVERED IN GAUZE AND TEGADERM. SEROSANGUINOUS DRAINAGE, UNCHANGED FROM START OF SHIFT
--- NOTE | 2022-03-31 14:08 | NUR ---
Standby assistance to sit on side of bed, and then to get up to bedside commode to void. Saturated pull-up was removed, clean dry ones applied after [place] [facility] assistance post void. Able to decrease oxygen from 7 l/min while sleeping to 5 l/min. Spo2 is 96% while sitting up eating lunch at this time, on 5 l/min O2 delivery.
--- NOTE | 2022-03-31 15:15 | NUR ---
Sitting up in chair, states that she feels great. Spo2 88-90% on 5 l/min O2 delivery. Paced at 60 bpm noted by telemetry monitoring.
--- NOTE | 2022-03-31 17:19 | NUR ---
This afternoon, pt's oxygen needs have fluctuated between 5-7 l/min. She has been up to the chair for her meals. Denies any cough, and none is observed. She has been incontinent of urine, continent of urine at times with stool continence. Appetite good, no c/o pain. Left chest wall pacemaker site is slightly swollen, with dressing which is intact and shows no changes in the amount of drainage since this morning. Paced at 60 bpm throughout the day.
[2022-04-01 03:54] LABS: BASOPHILS ABSOLUTE AUTO 0.03 K/mm3 (0.00-0.23); BASOPHILS PERCENT AUTO 1 % (0-2); EOSINOPHILS ABSOLUTE AUTO 0.28 K/mm3 (0.00-0.68); EOSINOPHILS PERCENT AUTO 5 % (0-6); Hematocrit 33.2 % (33.0-51.0); IMMATURE GRAN ABSOLUTE AUTO 0.02 K/mm3 (0.00-0.10); IMMATURE GRAN PERCENT AUTO 0 % (0-1); LYMPHOCYTES ABSOLUTE AUTO 1.36 K/mm3 (0.84-5.20); LYMPHOCYTES PERCENT AUTO 22 % (21-46); MONOCYTES ABSOLUTE AUTO 0.78 K/mm3 (0.16-1.47); MONOCYTES PERCENT AUTO 12 % (4-13); Mean Corpuscular HGB 27.8 pg (26.0-34.0); Mean Corpuscular HGB Conc 33.1 g/dL (31.5-36.5); Mean Corpuscular Volume 84 fL (80-100); Mean Platelet Volume 11.3 fL (9.1-12.4); NEUTROPHILS ABSOLUTE AUTO 3.81 K/mm3 (1.96-9.15); NEUTROPHILS PERCENT AUTO 61 % (41-73); Platelet Count 236 K/mm3 (150-400); RDW Coefficient Variation 13.9 % (11.7-14.2); RDW Standard Deviation 42.5 fL (35.1-46.3); Red Blood Cell Count 3.95 M/mm3 (3.80-5.20); White Blood Cell Count 6.28 K/mm3 (4.00-11.30)
[2022-04-01 04:28] LABS: Calcium, Blood 9.2 mg/dL (8.5-10.1); Creatinine, Blood 1.06 mg/dL (0.40-1.00); Potassium, Blood 3.9 mmol/L (3.5-5.5)
--- NOTE | 2022-04-01 05:12 | NUR ---
LOC: BASELINE. EASILY AWAKENDS TO VERBAL STIMULI RESP: REQUIRED CONTINUOUS O2 ADJUSTMENTS WHILE SLEEPING (6L-14L) TO MAINTAIN SPO >88%. NO OTHER CHANGES. CARDIAC: 100% PACED AT 60 BPM GI/: INCONTINENT TO URINE REQUIRING FREQUENT BRIEF CHANGES. NO BOWEL MOVEMENT. TAKES MEDICATIONS WITH APPLESAUCE. SOFT MECHANICAL DIET AND HONEY THICKENED LIQUIDS. SKIN: LEFT CHEST WALL INCISION DRESSED WITH TAGADERM AND GAUZE. SHADOWING NOTED ON GUAZE. PATIENT REPORTS PAIN TO SITE WITH MOVEMENT. MISC: PATIENT SLEPT WELL THROUGH THE NIGHT REQUIRING FREQUENT O2 ADJUSTMENTS TO MAINTAIN SPO2 >88% DEPENDENT ON PATIENTS POSITION AND DEPTH OF SLEEP.
--- NOTE | 2022-04-01 17:50 | NUR ---
SHIFT SUMMARY PT IS ALERT AND ORIENTED TO PLACE AND SITUATION, SHE IS ABLE TO MAKE HER NEEDS KNOWN AND FOLLOWS COMMANDS. BP AND HR STABLE, SPO2 >95% VIA 5L NC WHICH WAS TITRATED FROM 13L THIS AM. SHE HAS REPORTED PAIN IN PACER SITE LOCATED IN LEFT CHEST WALL AFTER RETURN FROM X-RAY, SEE EMAR, ALSO COLD THERAPY APPLIED. SHE HAS DENIED NAUSEA, NO COUGH NOTED. SHE DENIED FEELINGS OF CHEST PAIN/PRESSURE. SHE HAS BEEN SBA TO CHAIR. PT IS INCONTINENT OF URINE, FREQUENT BRIEF CHANGES TO KEEP SKIN DRY/CLEAN. PEG TUBE IS CLAMPED, SKIN AROUND TUBE IS FREE OF REDNESS/SWELLING AND IS INTACT. NO OTHER ACUTE CHANGES NOTED. CALL LIGHT IN REACH.
[2022-04-02 04:24] LABS: Bun/Creatinine Ratio 21.1 (12.0-20.0); Calcium, Blood 8.9 mg/dL (8.5-10.1); Creatinine, Blood 0.95 mg/dL (0.40-1.00); Magnesium, Blood 1.3 mg/dL (1.6-2.4); Phosphorus, Blood 3.6 mg/dL (2.5-4.9); Potassium, Blood 4.1 mmol/L (3.5-5.5)
--- NOTE | 2022-04-02 05:24 | NUR ---
SHIFT SUMMARY PT A&Ox3, CALLS AND COMMUNICATES NEEDS APPROPRIATELY, FOLLOWS COMMANDS, UNABLE TO SAY WHEN HER BIRTHDAY IS AND WHAT LEAD TO HER ADMISSION. VSS, SpO2> 92% ON 4L VIA NC, DENIES SOB. PACED 60's, DENIES CP/PRESSURE. PT INCONTINENT OF URINE THIS SHIFT, PROVIDED ATTENDS CHANGES, RUBEN CARE, AND REPOSITIONING. PT IS ABLE TO COMMUNICATE WHEN HER ATTENDS ARE WET. PEG TUBE IN PLACE, CLAMPED AND INTACT, INSERTION SITE IS FREE OF DRAINAGE AND BREAK DOWN. PACER INSERTION SITE IN LEFT CHEST WALL IS UNCHAGED FROM PREIVOUS SHIFT, GAUZE AND TEGADERM DRESSING IN PLACE WITH MINOR SEROSANGUINEOUS DRAINAGE PRESENT. PT REPORTS MINOR TENDERNESS AT INSERTION SITE. PT DID NOT LIFT LEFT ARM ABOVE SHOULDER DURING THIS SHIFT. NO OTHER EVENTS THIS SHIFT, WILL REPORT TO DAY SHIFT RN.
--- NOTE | 2022-04-02 15:46 | NUR ---
SHIFT SUMMARY PT RESTING QUIETLY AT START OF SHIFT, WOKE EASILY FOR CARE. PT UP TO CHAIR FOR BREAKFAST AND THEN TO SHOWER AFTERWARDS. PT ABLE TO AMBULATE TO BTHRM AND BACK USING FWW AND SBA. PT NOT WANTING ANY HELP AND TRYING TO GET OOOB AND CHAIR ON HER OWN WITH MINIMAL ASSIST. PT WANTING TO GO HOME TODAY. DR MEJÍA CAME TO SEE PT WHEN IN SHOWER, AND LATER RETURNED WHEN FINISHED. PT ON 3L O2 VIA N/C AT START OF SHIFT WITH BIOX @ 96%. ABLE TO DECREASE TO BASELINE 2L, WITH PT'S BIOX REMAINING @ 100%. BIOX LATER DECREASED TO 95% ON 2L O2, WHILE PT SLEEPING. ROLL OUT MANAGER NOTIFIED FOR D/C STATUS. PT NEEDING TO MAINTAIN BIOX ON BASELINE O2 AND BE ABLE TO AMBULATE TO CHAIR AND BTHRM IN ORDER TO RETURN TO [facility]. PT UP TO BTHRM FOR BM USING FWW AND SBA. MEDS TAKEN WHOLE IN APPLESAUCE, TOLERATING WELL. SPEECH IS DIFFICULT TO UNDERSTAND AT TIMES D/T HX OF CVA. PT OCCASSIONALLY HAS DIFFICULTY EXPRESSING NEEDED WORDS. NO C/O PAIN. DENIES FURTHER NEEDS AT THIS TIME. CALL LT IN REACH.
--- NOTE | 2022-04-03 04:54 | NUR ---
TRANSFER PT TRANSFERRED TO RM 324 FROM PCU 20. REPORT TAKEN FROM MATCHER TO ASSUME CARE OF PT AT THIS TIME. BELONGINGS IN PLACE WITH PT. O2 IN PLACE AT 2L. PT RESTING COMFORTABLY IN BED AND DENIES NEEDS.
[2022-04-03 05:10] LABS: BASOPHILS ABSOLUTE AUTO 0.04 K/mm3 (0.00-0.23); BASOPHILS PERCENT AUTO 1 % (0-2); EOSINOPHILS ABSOLUTE AUTO 0.27 K/mm3 (0.00-0.68); EOSINOPHILS PERCENT AUTO 5 % (0-6); Hematocrit 31.9 % (33.0-51.0); Hemoglobin 10.5 g/dL (11.5-16.0); IMMATURE GRAN ABSOLUTE AUTO 0.01 K/mm3 (0.00-0.10); IMMATURE GRAN PERCENT AUTO 0 % (0-1); LYMPHOCYTES PERCENT AUTO 24 % (21-46); MONOCYTES ABSOLUTE AUTO 0.73 K/mm3 (0.16-1.47); MONOCYTES PERCENT AUTO 13 % (4-13); Mean Corpuscular HGB 28.2 pg (26.0-34.0); Mean Corpuscular HGB Conc 32.9 g/dL (31.5-36.5); Mean Corpuscular Volume 86 fL (80-100); Mean Platelet Volume 11.2 fL (9.1-12.4); NEUTROPHILS ABSOLUTE AUTO 3.36 K/mm3 (1.96-9.15); NEUTROPHILS PERCENT AUTO 58 % (41-73); Platelet Count 226 K/mm3 (150-400); RDW Standard Deviation 43.2 fL (35.1-46.3); Red Blood Cell Count 3.72 M/mm3 (3.80-5.20); White Blood Cell Count 5.81 K/mm3 (4.00-11.30)
[2022-04-03 05:30] LABS: Bun/Creatinine Ratio 19.9 (12.0-20.0); Calcium, Blood 8.8 mg/dL (8.5-10.1); Creatinine, Blood 0.86 mg/dL (0.40-1.00); Magnesium, Blood 1.8 mg/dL (1.6-2.4)
--- NOTE | 2022-04-03 05:50 | NUR ---
TRANSFER TO MEDICAL FLOOR / SHIFT SUMMARY PT A&Ox4, CALLS AND COMMUNICATES NEEDS APPROPRIATELY, FOLLOWS COMMANDS, UNABLE TO SAT WHEN HER BIRTHDAY IS AND WHAT LEAD TO HER ADMISSION. VSS, SpO2> 92% ON 2L VIA NC, DENIES SOB. PACED 60's, DENIES CP/PRESSURE. PACER INSERTION SITE IN LEFT CHEST WALL IS UNCHANGED FROM PREVIOUS SHIFT, GAUZE AND TEGADERM DRESSING IN PLACE WITH MINOR SEROSANGUINEOUS DRAINAGE PRESENT. PT REPORTS MINOR TENDERNESS AT INSERTION SITE, MEDICATED PER EMAR. EDUCATION PROVIDED TO PT REGARDING NOT LIFTING LEFT ARM ABOVE SHOULDER, PT RECEPTIVE. PT INCONTINENT OF URINE THIS SHIFT, PROVIDED ATTENDS CHANGES, RUBEN CARE, AND REPOSITIONING. NO OTHER EVENTS THIS SHIFT. REPORT GIVEN TO MEDICAL FLOOR RN AT APPROXIMATELY 0410, PT TRANSPORTED IN HOSPITAL BED TO MEDICAL FLOOR ROOM 324 BY CLINICAL STAFF AT APPROXIMATELY 0420. ALL BELONGINGS WITH PT. PT BROUGHT UP ON 2L O2 VIA NC ON PORTABLE O2 TANK.
--- NOTE | 2022-04-03 17:51 | NUR ---
ALERT AND ORIENTED, MAKES NEEDS KNOWN, APHASGIA, USES CALL LIGHT, VSS, NO ACUTE CHANGES, BMX2 SOFT BROWN, AMBULATED TO BATHROOM X4 TODAY, STAND BY BUT LATER WAS MUCH WEAKER. PLEASANT TO CARE, HEART DRSG INTACT, WILL RELAY TO PM RN
--- NOTE | 2022-04-04 03:45 | NUR ---
[place] SUMMARY VSS. RECEIVING ANTIBIOTICS. DENIED PAIN. O2 4L/MIN PER NASAL CANNULA. HAS BEEN RESTING QUIETLY WITH FEW INTERRUPTIONS. LUNG SOUNDS DIM TO AUSCULTATION. ACCU CHECKS CONTINUE. LEFT SIDE SEEMS SLIGHTLY WEAKER THAN RIGHT. DENIES LOSS OF FEELING. VERBAL RESPONSE SLURRED. CHEST DRESSING INTACT. CALL LIGHT IN REACH. NO NOTED S/S ACUTE DISTRESS. WILL CONTINUE TO MONITOR
[2022-04-04] MEDS ORDERED: LOSA50 PO (11:01)
--- NOTE | 2022-04-04 18:02 | NUR ---
REPORT CALLED TO DIA NUR AT 1802 ON 04/04/22
== END 2022-04-04 17:45 | disposition home or self-care (01) | DRG 987 ==
LOC: ER 18:15 → MEDS 03-15 02:20 → PCU 03-15 02:20 → MEDS 03-15 02:42 → PCU 03-15 05:21 → MEDS 04-03 04:40
PROVIDERS: Emergency Medicine; Family Medicine; Hospitalist; Internal Medicine; ADMIT Internal Medicine
PROC: 8E0ZXY6 Isolation (ICD-10-PCS; 2022-03-15)
PROC: 3E0333Z Introduction of Anti-inflammatory into Peripheral Vein, Percutaneous Approach (ICD-10-PCS; 2022-03-15)
PROC: XW033E5 Introduction of Remdesivir Anti-infective into Peripheral Vein, Percutaneous Approach, New Technology Group 5 (ICD-10-PCS; 2022-03-20)
PROC: 0JPT0PZ Removal of Cardiac Rhythm Related Device from Trunk Subcutaneous Tissue and Fascia, Open Approach (ICD-10-PCS; principal; 2022-03-30)
PROC: 0JH606Z Insertion of Pacemaker, Dual Chamber into Chest Subcutaneous Tissue and Fascia, Open Approach (ICD-10-PCS; 2022-03-30)
DX: U07.1 COVID-19 (principal); J69.0 Pneumonitis due to inhalation of food and vomit; I50.32 Chronic diastolic (congestive) heart failure; N17.9 Acute kidney failure, unspecified; T82.191A Other mechanical complication of cardiac pulse generator (battery), initial encounter; J96.11 Chronic respiratory failure with hypoxia; E78.5 Hyperlipidemia, unspecified; M19.90 Unspecified osteoarthritis, unspecified site; E11.40 Type 2 diabetes mellitus with diabetic neuropathy, unspecified; M79.7 Fibromyalgia; I44.1 Atrioventricular block, second degree; I11.0 Hypertensive heart disease with heart failure; F32.9 Major depressive disorder, single episode, unspecified; E83.42 Hypomagnesemia; Z93.1 Gastrostomy status; I69.391 Dysphagia following cerebral infarction; Z87.440 Personal history of urinary (tract) infections; Z90.710 Acquired absence of both cervix and uterus; Z90.89 Acquired absence of other organs; I25.2 Old myocardial infarction; Z99.81 Dependence on supplemental oxygen; Z88.0 Allergy status to penicillin; Z88.5 Allergy status to narcotic agent; Z88.6 Allergy status to analgesic agent; Z79.4 Long term (current) use of insulin; Z79.82 Long term (current) use of aspirin; Z79.899 Other long term (current) drug therapy; Y83.1 Surgical operation with implant of artificial internal device as the cause of abnormal reaction of the patient, or of later complication, without mention of misadventure at the time of the procedure
CPT/HCPCS: 33228; 36415; 71045; 71046; 71260; 74230; 80048; 80053; 82947; 83735; 83880; 84100; 84145; 84484; 85025; 85379; 92526; 92610; 92611; 93005; 93010; 93306; 93971; 94640; 94664; 94760; 94762; 96374-59; 97110; 97116; 97161; 97166; 97530; 97535; 99285-25; A9270; C1751; C1781; C1785; J0248; J0461; J0690; J0696; J1100; J1644; J1650; J1815; J1940; J2250; J2920; J3010; J3370; J3475; J7030; J7040; J7050; J7120; Q9967

== ENCOUNTER 2022-05-04 21:14 | Emergency (ER) | payer OTHER ==
[~2022-05-04] VITALS: Ht 165.1 cm; Wt 68.0 kg
[~2022-05-04 21:14] MED LIST changes: +LOSA50 PO
== END 2022-05-05 00:42 | disposition home or self-care (01) ==
LOC: ER 21:14
DX: M54.50 Low back pain, unspecified (principal); M48.56XA Collapsed vertebra, not elsewhere classified, lumbar region, initial encounter for fracture; E11.9 Type 2 diabetes mellitus without complications; I10 Essential (primary) hypertension; I25.2 Old myocardial infarction; W19.XXXA Unspecified fall, initial encounter; Z79.4 Long term (current) use of insulin; Z79.899 Other long term (current) drug therapy; Z79.82 Long term (current) use of aspirin; Z88.0 Allergy status to penicillin; Z88.5 Allergy status to narcotic agent; Z88.8 Allergy status to other drugs, medicaments and biological substances; Z86.73 Personal history of transient ischemic attack (TIA), and cerebral infarction without residual deficits; Z95.0 Presence of cardiac pacemaker
CPT/HCPCS: 72100; 96372; 99283-25; J1885

== ENCOUNTER → 2023-01-12 | Outpatient (CLI) | payer OTHER ==
[2023-01-12 13:55] LABS: BASOPHILS ABSOLUTE AUTO 0.05 K/mm3 (0.00-0.23); BASOPHILS PERCENT AUTO 1 % (0-2); EOSINOPHILS ABSOLUTE AUTO 0.12 K/mm3 (0.00-0.68); EOSINOPHILS PERCENT AUTO 2 % (0-6); Hematocrit 39.3 % (33.0-51.0); Hemoglobin 12.7 g/dL (11.5-16.0); IMMATURE GRAN ABSOLUTE AUTO 0.02 K/mm3 (0.00-0.10); IMMATURE GRAN PERCENT AUTO 0 % (0-1); LYMPHOCYTES ABSOLUTE AUTO 1.77 K/mm3 (0.84-5.20); LYMPHOCYTES PERCENT AUTO 22 % (21-46); MONOCYTES ABSOLUTE AUTO 0.77 K/mm3 (0.16-1.47); MONOCYTES PERCENT AUTO 9 % (4-13); Mean Corpuscular HGB 28.8 pg (26.0-34.0); Mean Corpuscular HGB Conc 32.3 g/dL (31.5-36.5); Mean Corpuscular Volume 89 fL (80-100); Mean Platelet Volume 12.4 fL (9.1-12.4); NEUTROPHILS ABSOLUTE AUTO 5.45 K/mm3 (1.96-9.15); NEUTROPHILS PERCENT AUTO 67 % (41-73); Platelet Count 253 K/mm3 (150-400); RDW Coefficient Variation 13.3 % (11.7-14.2); RDW Standard Deviation 43.7 fL (35.1-46.3); Red Blood Cell Count 4.41 M/mm3 (3.80-5.20); White Blood Cell Count 8.18 K/mm3 (4.00-11.30)
[2023-01-12 14:14] LABS: Anion Gap 10 mmol/L (6-16); Blood Urea Nitrogen 50 mg/dL (8-24); CHOL/HDL RATIO 2.7; CO2, Blood 28 mmol/L (21-32); Calcium, Blood 9.8 mg/dL (8.5-10.1); Chloride, Blood 104 mmol/L (98-108); Cholesterol 118 mg/dL (50-200); Creatinine, Blood 1.47 mg/dL (0.40-1.00); Glomerular Filtration Rate 38 (60-); Glucose, Blood 172 mg/dL (70-99); HDL Cholesterol 44 mg/dL (>39); LDL/HDL RATIO 1.2; Low Density Lipoprotein Chol 53 mg/dL (<110); Potassium, Blood 4.4 mmol/L (3.5-5.5); Sodium, Blood 142 mmol/L (136-145); Triglycerides 106 mg/dL (30-160); Very Low Density Lipoprot Chol 21 mg/dL (6-32)
== END ==
LOC: LAB SHORT 13:49 → LAB 13:49
PROVIDERS: Physician Assistant
DX: E11.22 Type 2 diabetes mellitus with diabetic chronic kidney disease (principal); N18.9 Chronic kidney disease, unspecified; I12.9 Hypertensive chronic kidney disease with stage 1 through stage 4 chronic kidney disease, or unspecified chronic kidney disease; E78.2 Mixed hyperlipidemia; E11.311 Type 2 diabetes mellitus with unspecified diabetic retinopathy with macular edema; E11.42 Type 2 diabetes mellitus with diabetic polyneuropathy; E11.51 Type 2 diabetes mellitus with diabetic peripheral angiopathy without gangrene; E11.8 Type 2 diabetes mellitus with unspecified complications; Z79.4 Long term (current) use of insulin
CPT/HCPCS: 80048; 80061; 83036; 85025